=== PATIENT | male | born 1930 | race Caucasian/White ===

== ENCOUNTER 2017-01-17 12:23 | Inpatient (IN) | payer MEDICARE, MEDICAID ==
[2017-01-17] MEDS ORDERED: Albuterol-Ipratrop 3 mg / 0.5 (3 ml) UD IH STA (13:12)
--- NOTE | 2017-01-17 13:13 | C.PDOC ---
History Of Present Illness 86-YEAR-OLD MALE, W LIMITED HX, COMES IN ACCOMPANIED BY FAMILY, W/ COMPLAINTS OF SOB X 2 DAYS. +WHEEZING. PRIOR HO SIM EPISODE "BUT I DONT KNOW FROM WHAT". NO FEVER, CP. NO HOME O2 USE. NO LEG SWELLING. PMD DR DIANE LOPEZ ROS LIMTIED EXAM MOD DIST HEENT NEG LUNGS +TACHYPNEA W RETRACTINS OCC EXP WHEEZE ?BASILAR RALE CV IRREG REG TACHY ABD NEG NO EDEMA WARM DRY REMAINDER NEG Time Seen by Provider: 01/17/17 12:45 Chief Complaint (Nursing): Shortness Of Breath History Per: Family History/Exam Limitations: clinical condition Current Symptoms Are (Timing): Still Present Past Medical History Reviewed: Historical Data, Nursing Documentation, Vital Signs Vital Signs: Last Vital Signs Temp 98.3 F 01/17/17 13:16 Pulse 79 01/17/17 15:37 Resp 24 01/17/17 15:37 BP 105/62 01/17/17 15:37 Pulse Ox 100 01/17/17 15:37 - Medical History PMH: Asthma Family History: States: No Known Family Hx - Social History Hx Alcohol Use: No Hx Substance Use: No - Immunization History Hx Tetanus Toxoid Vaccination: (unk) Hx Influenza Vaccination: Yes (2016) Hx Pneumococcal Vaccination: (unk) Review Of Systems Review Of Systems: ROS cannot be obtained secondary to pt's inabilty to answer questions. Respiratory: Positive for: Shortness of Breath, Wheezing Physical Exam - Physical Exam Appears: Non-toxic, Other (MODERATE DISTRESS) Skin: Warm, Dry Head: Atraumatic Eye(s): bilateral: Normal Inspection, PERRL Oral Mucosa: Moist Neck: Normal ROM Chest: Symmetrical Cardiovascular: Rhythm Irregular (TACHYCARDIC), No Murmur Respiratory: Wheezing, Other ( +TACHYPNEA W RETRACTINS OCC EXP WHEEZE ?BASILAR RALE) Gastrointestinal/Abdominal: Soft, No Tenderness Extremity: Normal ROM, No Pedal Edema Neurological/Psych: Other (no focal deficit) ED Course And Treatment - Laboratory Results Result Diagrams: 01/17/17 13:19 01/17/17 13:19 ECG: Interpreted By Me ECG Rhythm: Atrial Fibrillation Rate From EC O2 Sat by Pulse Oximetry: 97 (on RA) Pulse Ox Interpretation: Normal - Radiology CXR: Interpreted by Me (? vascular congestion), Viewed By Me Progress - Re-Evaluation Re-evaluation Note: 01/17/17 13:48 sbp 84. NSR ON MONITOR @ 84 W OCC PVC. MILD RESP DIST ON O2. HOLD CARDIZEM, LASIX. 01/17/17 14:12 PT MED LIST INCOMPLETE. +COPD MEDS. REPEAT EKG NSR@80 APPEARS COMFORTABLE EXAM UNCH PRIOR 01/17/17 14:14 D/W DR Kristie LOPEZ C/F ICU, WILL EVAL IN ER 01/17/17 14:38 PROCALCITONIN, NS 500 CC, BIPAP WILL REASSESS FOR POSSIBLE ICU 01/17/17 14:20 PENDING CALLBACK PMD 01/17/17 15:02 D/W DR Obdulia LOPEZ WILL ADMIT PENDING ICU DISPO 01/17/17 16:31 APPEARS BETTER COMPARED TO PRIOR. NSR @ 67, SBP 105 NO TACHYPNEA. ON BIPAP. D/W DR Kristie LOPEZ, CLEARED FOR TELE. RECOMMENDS TAMIFLU - Data Reviewed Data Reviewed: Lab, Diagnostic imaging, EKG, Old records - Critical Care Citical Care: Excluding Proc Time Critical Care Time: 105 minutes - Continuity of Care Discussed patient case with:: Patient, Family-HIPPA compliant Discussed pt. case with art consultant/specialty: Pulmonary/Crit. Care Disposition Counseled Patient/Family Regarding: Studies Performed, Diagnosis - Disposition Disposition: HOSPITALIZED Disposition Time: 15:03 Condition: SERIOUS Forms: [facility] (Upper Sor[place]) - POA Present On Arrival: Poor Glycemic Control - Clinical Impression Clinical Impression: COPD exacerbation, CHF exacerbation, Rapid atrial fibrillation, Hypotension - Scribe Statement The provider has reviewed the documentation as recorded by the Scribe (Jose Manuel Najera) All medical record entries made by the Scribe were at my direction and personally dictated by me. I have reviewed the chart and agree that the record accurately reflects my personal performance of the history, physical exam, medical decision making, and the department course for this patient. I have also personally directed, reviewed, and agree with the discharge instructions and disposition. Decision To Admit - Pt Status Changed To: Hospital Disposition Of: Inpatient - Admit Certification Admit to Inpatient:: After my assessment, the patient will require hospitalization for at least two midnights. This is because of the severity of symptoms shown, intensity of services needed, and/or the medical risk in this patient being treated as an outpatient. - InPatient: Physician Admission Certification: I certify that this patient requires 2 or more midnights of care for the following reason:: SEE NOTE - . Bed Request Type: Telemetry Admitting Physician: Diane Lopez Patient Diagnosis: COPD exacerbation, CHF exacerbation, Rapid atrial fibrillation, Hypotension
[2017-01-17 13:22] LABS: BASO % 0.6 % (0.0-2.0); EOS % 0.1 % (0.0-4.0); HEMATOCRIT 28.4 % (35.0-51.0); LYMPH # 1.2 K/uL (1.0-4.3); LYMPH % 17.2 % (20.0-40.0); MEAN CELL VOLUME 93.6 fL (80.0-94.0); MEAN CORPUSCULAR HEMOGLOBIN 30.8 pg (27.0-31.0); MEAN CORPUSCULAR HGB CONC 32.9 g/dL (33.0-37.0); MEAN PLATELET VOLUME 10.9 fL (7.2-11.7); MONO # 0.8 K/uL (0.0-0.8); MONO % 11.2 % (0.0-10.0); NRBC % 0.2 % (0.0-2.0); RED CELL DISTRIBUTION WIDTH 16.5 % (11.5-14.5); WHITE BLOOD COUNT 6.9 K/uL (4.8-10.8)
[2017-01-17] MEDS ORDERED: Albuterol-Ipratrop 3 mg / 0.5 (3 ml) UD ONE ×2 (13:22→15:21)
[2017-01-17 13:30] LABS: CHLORIDE 104 mmol/L (98-107); SODIUM 135 mmol/L (132-148)
[2017-01-17 13:31] LABS: POTASSIUM 3.9 mmol/L (3.6-5.2)
[2017-01-17 13:33] LABS: ALB/GLOB RATIO 1.1 (1.0-2.1); ALKALINE PHOSPHATASE 37 U/L (38-126); ALT/SGPT 28 U/L (21-72); AST/SGOT 40 U/L (17-59); BILIRUBIN,TOTAL 1.3 mg/dL (0.2-1.3); BLOOD UREA NITROGEN 23 mg/dL (9-20); CARBON DIOXIDE 18 mmol/L (22-30); GFR AFRICAN-AMERICAN > 60; GLUCOSE,RANDOM 148 mg/dL (75-110); TOTAL PROTEIN 6.9 g/dL (6.3-8.3)
[2017-01-17] MEDS ORDERED: Digoxin 500 mcg/2ml (0.5 mg/2ml) Inj IV STA (13:47)
--- NOTE | 2017-01-17 13:53 | RAD ---
PROCEDURE: CHEST RADIOGRAPH, 1 VIEW HISTORY: Shortness of breath COMPARISON: 05/26/2011 FINDINGS: LUNGS: There is mild pulmonary venous congestion and interstitial pulmonary edema. The lungs are hyperinflated with peribronchial thickening and subsegmental atelectasis in the right lower lobe. No focal consolidation. PLEURA: No pneumothorax. Suspect small pleural effusions. CARDIOVASCULAR: There is mild cardiomegaly. Atherosclerotic aortic arch calcifications are present. OSSEOUS STRUCTURES: No significant abnormalities. VISUALIZED UPPER ABDOMEN: Normal. OTHER FINDINGS: None. IMPRESSION: Mild cardiomegaly, pulmonary venous congestion and interstitial pulmonary edema suggestive of mild congestive heart failure. COPD. No focal consolidation.
[2017-01-17] MEDS ORDERED: Digoxin 500 mcg/2ml (0.5 mg/2ml) Inj ONE (13:58)
[2017-01-17 14:08] LABS: INR 1.2
[2017-01-17 14:10] LABS: VENOUS BLOOD GAS BASE EXCESS -2.1 mmol/L (0.0-2.0); VENOUS BLOOD GAS PCO2 30 mmHg (40-60); VENOUS BLOOD PH 7.45 (7.32-7.43)
[2017-01-17] MEDS ORDERED: MethylPREDNISolone 40 mg Vial IVP STA (14:13)
[2017-01-17] MEDS ORDERED: Sodium Chloride 0.9% 500 ML IV ONE (14:38)
[2017-01-17] MEDS: Albuterol-Ipratrop 3 mg / 0.5 (3 ml) UD IH SCH ×2 (15:00→15:15)
--- NOTE | 2017-01-17 17:34 | CP.PCM.CON ---
History of Present Illness - History of Present Illness History of Present Illness: 86 y/o male with pmx of COPD, h/o diastolic heart failure and at risk of CAD presents to [facility] with c/o cough x 3 days, thick productive, yellow. respiratoty distress. Patient taking theophyline, albuterol. Patient presents to ER with A-fib/svt and dyspnea. A-fb self terminated by itself. BP improved. Patient was initially given lasix, but given the viral infection, BP impoved with fluid bolus. (+)Sob, (+) cough, denies any chest pain, denies any dizizness Review of Systems - Review of Systems Systems not reviewed;Unavailable: Respiratory Distress - Constitutional Constitutional: As Per HPI - EENT Eyes: Blurred Vision - Cardiovascular Cardiovascular: Dyspnea on Exertion, Irregular Heart Rhythm. absent: Chest Pain , Leg Edema - Respiratory Respiratory: absent: Cough, Excessive Mucous Production, Change in Mucous Color - Gastrointestinal Gastrointestinal: absent: Abdominal Pain, Bloating, Constipation, Cramping, Diarrhea, Dyspepsia - Neurological Neurological: Abnormal Hearing Past Patient History - Past Medical History & Family History Past Medical History?: Yes - Past Social History Smoking Status: Heavy Smoker > 10 Cigarettes Daily - CARDIAC Hx Cardiac Disorders: Yes Hx Angina: No Hx Atrial Fibrillation: Yes Hx Cardia Arrhythmia: Yes Hx Circulatory Problems: Yes Hx Congestive Heart Failure: Yes Hx Heart Attack: No Hx Heart Murmur: Yes Hx Heart Transplant: No - PULMONARY Hx Asthma: Yes Hx Chronic Obstructive Pulmonary Disease (COPD): Yes Hx Respiratory Tract Infection: Yes - PSYCHIATRIC Hx Substance Use: No - SURGICAL HISTORY Hx Surgeries: No - ANESTHESIA Hx Anesthesia: No Meds Allergies/Adverse Reactions: Allergies Allergy/AdvReac Type Severity Reaction Status Date / Time No Known Allergies Allergy Unverified 01/17/17 12:34 - Medications Medications: Current Medications Diltiazem HCl 125 mg/ Sodium (Chloride) 125 mls @ 5 mls/hr IV .Q24H JUNIOR PRN Reason: 5 MG/HR Last Admin: 01/17/17 14:52 Dose: Not Given Physical Exam - Head Exam Head Exam: ATRAUMATIC, NORMOCEPHALIC - Eye Exam Eye Exam: EOMI, Normal appearance - ENT Exam ENT Exam: Mucous Membranes Dry - Respiratory Exam Respiratory Exam: Accessory Muscle Use, Prolonged Expiratory Phase, Rhonchi, Respiratory Distress - Cardiovascular Exam Cardiovascular Exam: Bradycardia, +S1, +S2, Systolic Murmur - GI/Abdominal Exam GI & Abdominal Exam: Normal Bowel Sounds, Soft. absent: Distended Results - Vital Signs Recent Vital Signs: Last Vital Signs Temp 98.3 F 01/17/17 13:16 Pulse 69 01/17/17 17:32 Resp 22 01/17/17 17:32 BP 135/71 01/17/17 17:32 Pulse Ox 100 01/17/17 17:32 - Labs Result Diagrams: 01/17/17 13:19 01/17/17 13:19 Labs: Laboratory Results - last 24 hr 01/17/17 01/17/17 01/17/17 13:19 13:19 13:25 WBC 6.9 RBC 3.04 L Hgb 9.4 L Hct 28.4 L MCV 93.6 MCH 30.8 MCHC 32.9 L RDW 16.5 H Plt Count 142 MPV 10.9 Neut % (Auto) 70.9 Lymph % (Auto) 17.2 L [place] % (Auto) 11.2 H Eos % (Auto) 0.1 Baso % (Auto) 0.6 Neut # 4.9 Lymph # 1.2 [place] # 0.8 Eos # 0.0 Baso # 0.0 Differential Comment PT INR APTT pO2 146 H VBG pH 7.45 H VBG pCO2 30 L VBG HCO3 23.3 VBG Total CO2 21.8 L VBG O2 Sat (Calc) 100.2 H VBG Base Excess -2.1 L VBG Potassium 3.8 Glucose 169 H Lactate 2.0 Sodium 135 138.0 Potassium 3.9 Chloride 104 111.0 H Carbon Dioxide 18 L Anion Gap 17 BUN 23 H Creatinine 1.3 Est GFR ( Amer) > 60 Est GFR (Non-Af Amer) 52 Random Glucose 148 H Calcium 8.0 L Total Bilirubin 1.3 AST 40 ALT 28 Alkaline Phosphatase 37 L Troponin I 0.1490 H* NT-Pro-B Natriuret Pep 6450 H Total Protein 6.9 Albumin 3.7 Globulin 3.2 Albumin/Globulin Ratio 1.1 Procalcitonin Venous Blood Potassium 3.8 Influenza Typ A,B (EIA) 01/17/17 01/17/17 01/17/17 13:57 15:29 15:31 WBC RBC Hgb Hct MCV MCH MCHC RDW Plt Count MPV Neut % (Auto) Lymph % (Auto) [place] % (Auto) Eos % (Auto) Baso % (Auto) Neut # Lymph # [place] # Eos # Baso # Differential Comment PT 14.2 H INR 1.2 APTT 36 H pO2 VBG pH VBG pCO2 VBG HCO3 VBG Total CO2 VBG O2 Sat (Calc) VBG Base Excess VBG Potassium Glucose Lactate Sodium Potassium Chloride Carbon Dioxide Anion Gap BUN Creatinine Est GFR ( Amer) Est GFR (Non-Af Amer) Random Glucose Calcium Total Bilirubin AST ALT Alkaline Phosphatase Troponin I NT-Pro-B Natriuret Pep Total Protein Albumin Globulin Albumin/Globulin Ratio Procalcitonin 0.43 Venous Blood Potassium Influenza Typ A,B (EIA) Negative for flu a/b - EKG Data EKG Interpreted by: Myself Rate: Tachycardia - EKG Data When Compared to Previous EKG: Significant Changes (st wave changes septal leads ) Assessment & Plan - Assessment and Plan (Free Text) Assessment: -Afib: 2nd cough and bronchodilators, viral URTI, continue home AV lidia blockers, start Asa as patient at risk of CAD given history of COPD and PVD on physical exam -COPD: exacerbation 2nd URTI, start solumedrol 40 mg q8hrs, bronchodilators, Bi- pap to decrease work of breathing, obtain ABG - URTI; Influenza EIA sensitivity low, given FREDRICK symptoms, start tamiflu, check procalcitonin -CAD/NSTEMI: obtain cardiology input, ST t wave changes normalized when HR normal, consider dual antiplatelet therapy (asa + plavix), av lidia paula ( CONSIDER ccb) -Patient was taking theophylene, check levels -consider cardiology input, echo (LIKELY DIASTOLIC HEART FAILURE), CHADVasc score high: consider AC after discussing risks and benefits -COPD: continue IV steroids and singulair, stop theophylene and contineu atrovent q6 and albuterol PRN -start chemical DVT ppx -start ppi ppx Patient will benfit from telemetry eval PLEASE CALL MICU IF PATIENT'S CLINICAL STATUS WORSENS OR HR >120. D/W ER PHYSICIAN CC TIME SPENT 35 MINUTES
[2017-01-17] MEDS ORDERED: Ipratropium 0.02% Inhal Soln (0.5 mg/2.5 ml) UD IH SCH (18:15)
[2017-01-17] MEDS ORDERED: Ipratropium 0.02% Inhal Soln (0.5 mg/2.5 ml) UD IH ONE (20:49)
[2017-01-17] MEDS ORDERED: Fluticasone-Salmeterol 250-50mcg Diskus IH SCH (22:00)
[2017-01-17] MEDS ORDERED: MethylPREDNISolone 40 mg Vial ONE (22:24)
[2017-01-17] MEDS: MethylPREDNISolone 40 mg Vial IVP SCH (22:26)
--- NOTE | 2017-01-17 23:31 | HP ---
HISTORY OF PRESENT ILLNESS: This is an 86-year-old male came to the emergency room with the family. The patient has history of increasing shortness of breath for the last 3 to 4 days. The patient has cough. The patient is known COPD. The patient denies having any chest pain. No history of any fever or chills. No swelling of the legs. No dizziness. REVIEW OF SYSTEMS: CARDIOVASCULAR: Negative for chest pain. RESPIRATORY SYSTEM: As mentioned above. CENTRAL NERVOUS SYSTEM: No focal neurological complaints. GASTROINTESTINAL: No history of nausea, vomiting or abdominal pain. The patient has constipation. EXTREMITIES: No edema of the legs. No fever. No urinary complaints. All other systems negative. The patient is psychiatrically stable. The patient has hard of hearing. PAST MEDICAL HISTORY: History of COPD. Anemia. No history of diabetes. Hypothyroidism. FAMILY HISTORY: No known inherited disease. SOCIAL HISTORY: Nonsmoker, nonalcoholic. ALLERGIES: NO KNOWN ALLERGIES. MEDICATIONS: The patient's medications are reviewed by me. PHYSICAL EXAMINATION: GENERAL: This is an 86-year-old male, tachypneic, dyspneic. VITAL SIGNS: Temperature 98.3, pulse 115, respirations 20 and blood pressure 90/52 mmHg, pulse ox is 97% on room air. HEENT: Normal. NECK: JVP is flat. Carotids, no bruits. LUNGS: Wheezing present, bilateral basal rales present. HEART: S1 and S2 normal. Tachycardic. No gallop. No murmur. ABDOMEN: Soft. Nontender. No organomegaly. CENTRAL NERVOUS SYSTEM: No focal neurological deficits. EXTREMITIES: No edema of the legs. LABORATORY DATA: On admission, white cell count is normal, hemoglobin is 9.4, potassium is 3.9, BUN is 23, and creatinine is 1.3. EKG initially showed atrial fibrillation with rapid ventricular rate, but the patient was converted to normal sinus rhythm. Chest x-ray shows mild pulmonary vascular congestion. Troponin is elevated. IMPRESSION: Non-ST elevation myocardial infarction. Congestive heart failure. Acute chronic obstructive pulmonary disease. Anemia. PLAN: The patient will be admitted to the hospital. We will get ICU team evaluated for ICU admission. We will continue other medication. Workup to rule out myocardial infarction. Manda Durbin MD [facility] # [id number]
[2017-01-18] MEDS: Albuterol-Ipratrop 3 mg / 0.5 (3 ml) UD INH SCH ×4 (01:28→19:34)
[2017-01-18 04:21] LABS: HEMATOCRIT 28.5 % (35.0-51.0); MEAN CELL VOLUME 92.9 fL (80.0-94.0); MEAN CORPUSCULAR HEMOGLOBIN 30.5 pg (27.0-31.0); MEAN CORPUSCULAR HGB CONC 32.8 g/dL (33.0-37.0); MEAN PLATELET VOLUME 10.5 fL (7.2-11.7); RED CELL DISTRIBUTION WIDTH 16.6 % (11.5-14.5)
[2017-01-18 04:33] LABS: CHLORIDE 104 mmol/L (98-107); POTASSIUM 4.5 mmol/L (3.6-5.2); SODIUM 135 mmol/L (132-148)
[2017-01-18 04:36] LABS: BLOOD UREA NITROGEN 28 mg/dL (9-20); CARBON DIOXIDE 19 mmol/L (22-30); GFR AFRICAN-AMERICAN > 60
[2017-01-18 04:37] LABS: CALCIUM 8.3 mg/dl (8.6-10.4); GLUCOSE,RANDOM 250 mg/dL (75-110)
[2017-01-18] MEDS: MethylPREDNISolone 40 mg Vial IVP SCH ×3 (05:17→21:06)
[2017-01-18] MEDS: Enoxaparin 40 mg Syringe SC SCH (09:16)
[2017-01-18] MEDS: Metoprolol Succinate 25 mg XL Tab PO SCH (11:46)
[2017-01-18] MEDS: Fluticasone-Salmeterol 250-50mcg Diskus IH SCH (19:34)
--- NOTE | 2017-01-18 21:16 | CP.PCM.PN ---
Subjective - Date & Time of Evaluation Date of Evaluation: 01/18/17 Time of Evaluation: 11:00 - Subjective Subjective: SOB PRESENT. NO CP. COUGH. AFEBRILE. Objective - Vital Signs/Intake and Output Vital Signs (last 24 hours): Temp Pulse Resp BP Pulse Ox 98.1 F 74 18 131/73 99 01/18/17 15:35 01/18/17 17:39 01/18/17 15:35 01/18/17 15:35 01/18/17 15:35 Intake and Output: 01/18/17 01/19/17 18:59 06:59 Intake Total 900 Output Total 800 Balance 100 - Medications Medications: Current Medications Albuterol/Ipratropium (Duoneb 3 Mg/0.5 Mg (3 Ml) Ud) 3 ml INH RQ6 [facility] Last Admin: 01/18/17 19:34 Dose: 3 ml Enoxaparin Sodium (Lovenox) 40 mg SC DAILY [facility] Last Admin: 01/18/17 09:16 Dose: 40 mg Furosemide (Lasix) 20 mg IVP DAILY [facility] Last Admin: 01/18/17 09:16 Dose: 20 mg Methylprednisolone (Solu-Medrol) 40 mg IVP Q8 [facility] Last Admin: 01/18/17 21:06 Dose: 40 mg Metoprolol Succinate (Toprol Xl) 25 mg PO DAILY [facility] Last Admin: 01/18/17 11:46 Dose: 25 mg Fluticasone/Salmeterol (Advair Diskus 250/50) 1 puff IH RQ12 [facility] Last Admin: 01/18/17 19:34 Dose: 1 puff - Labs Labs: 01/18/17 04:17 01/18/17 04:17 PT 14.2 SECONDS (9.7-12.2) H 01/17/17 13:57 INR 1.2 01/17/17 13:57 APTT 36 SECONDS (21-34) H 01/17/17 13:57 - Constitutional Appears: No Acute Distress, Chronically Ill - Eye Exam Eye Exam: Normal appearance, PERRL - ENT Exam ENT Exam: Mucous Membranes Moist - Respiratory Exam Respiratory Exam: Decreased Breath Sounds, Wheezes, NORMAL BREATHING PATTERN - Cardiovascular Exam Cardiovascular Exam: REGULAR RHYTHM, +S1, +S2 - GI/Abdominal Exam GI & Abdominal Exam: Soft, Normal Bowel Sounds - Extremities Exam Extremities Exam: Full ROM, Normal Capillary Refill, Normal Inspection. absent : Joint Swelling, Pedal Edema - Neurological Exam Neurological Exam: Alert, Awake, CN II-XII Intact, Normal Gait, Oriented x3 - Psychiatric Exam Psychiatric exam: Normal Affect, Normal Mood Assessment and Plan - Assessment and Plan (Free Text) Assessment: COPD. CHF. TROPONIN NEG. Plan: FOR CARDIAC W/U. RESP TREATMENT.
[2017-01-19] MEDS: Albuterol-Ipratrop 3 mg / 0.5 (3 ml) UD INH SCH ×4 (02:18→19:40)
[2017-01-19] MEDS: MethylPREDNISolone 40 mg Vial IVP SCH ×3 (05:20→22:11)
[2017-01-19] MEDS: Fluticasone-Salmeterol 250-50mcg Diskus IH SCH ×2 (08:09→19:43)
[2017-01-19] MEDS: Enoxaparin 40 mg Syringe SC SCH (10:31)
[2017-01-19] MEDS: Metoprolol Succinate 25 mg XL Tab PO SCH (10:32)
--- NOTE | 2017-01-19 13:04 | CP.PCM.PN ---
Subjective - Date & Time of Evaluation Date of Evaluation: 01/19/17 Time of Evaluation: 13:02 - Subjective Subjective: SEVERE SOB PRESENT AT TIMES. COUGH. AFEBRILE. DISCUSSED WITH DR. GARLAND. NO CP. CONSTIPATION. Objective - Vital Signs/Intake and Output Vital Signs (last 24 hours): Temp Pulse Resp BP Pulse Ox 97.7 F 76 16 134/69 95 01/19/17 08:47 01/19/17 12:31 01/19/17 08:47 01/19/17 10:32 01/19/17 08:47 Intake and Output: 01/19/17 01/19/17 06:59 18:59 Intake Total 480 Output Total 1200 Balance -720 - Medications Medications: Current Medications Albuterol/Ipratropium (Duoneb 3 Mg/0.5 Mg (3 Ml) Ud) 3 ml INH RQ6 [facility] Last Admin: 01/19/17 08:10 Dose: 3 ml Enoxaparin Sodium (Lovenox) 40 mg SC DAILY [facility] Last Admin: 01/19/17 10:31 Dose: 40 mg Furosemide (Lasix) 20 mg IVP DAILY [facility] Last Admin: 01/19/17 10:32 Dose: 20 mg Methylprednisolone (Solu-Medrol) 40 mg IVP Q8 [facility] Last Admin: 01/19/17 05:20 Dose: 40 mg Metoprolol Succinate (Toprol Xl) 25 mg PO DAILY [facility] Last Admin: 01/19/17 10:32 Dose: 25 mg Fluticasone/Salmeterol (Advair Diskus 250/50) 1 puff IH RQ12 [facility] Last Admin: 01/19/17 08:09 Dose: 1 puff - Labs Labs: 01/18/17 04:17 01/18/17 04:17 PT 14.2 SECONDS (9.7-12.2) H 01/17/17 13:57 INR 1.2 01/17/17 13:57 APTT 36 SECONDS (21-34) H 01/17/17 13:57 - Constitutional Appears: In Acute Distress, Chronically Ill - Eye Exam Eye Exam: Normal appearance, PERRL - ENT Exam ENT Exam: Mucous Membranes Moist - Respiratory Exam Respiratory Exam: Decreased Breath Sounds, Wheezes - Cardiovascular Exam Cardiovascular Exam: REGULAR RHYTHM, +S1, +S2 - GI/Abdominal Exam GI & Abdominal Exam: Soft, Normal Bowel Sounds - Extremities Exam Extremities Exam: Full ROM, Normal Capillary Refill, Normal Inspection. absent : Joint Swelling, Pedal Edema - Neurological Exam Neurological Exam: Alert, Awake, CN II-XII Intact, Normal Gait, Oriented x3 - Psychiatric Exam Psychiatric exam: Normal Affect, Normal Mood Assessment and Plan - Assessment and Plan (Free Text) Assessment: ACUTE COPD. CHF. Plan: FOR CARDIAC W/U. RESP TREATMENT. SOLUMEDROL.
--- NOTE | 2017-01-19 13:55 | CARD ---
APPROVED REPORT EKG Measurement Heart [id number] <Conclusion> Normal sinus rhythm Left axis deviation Abnormal ECG
--- NOTE | 2017-01-19 13:56 | CARD ---
APPROVED REPORT EKG Measurement Heart [id number] <Conclusion> Atrial fibrillation with rapid ventricular response Low voltage QRS Nonspecific ST abnormality Abnormal ECG
--- NOTE | 2017-01-19 17:23 | CP.PCM.CON ---
History of Present Illness - History of Present Illness History of Present Illness: Reason for consultation: shortness of breath 86-year-old male with history of COPD presented to emergency room complaining of shortness of breat and cough productive off thick purulent sputum. In the emergency room patient was found to be in atrial fibrillation which terminated by itself. Patient was initially placed on BiPAP and admitted to telemetry with COPD exacerbation Review of Systems - Review of Systems All systems: reviewed and no additional remarkable complaints except (shortness of breath and cough) Past Patient History - Past Medical History & Family History Past Medical History?: Yes - Past Social History Smoking Status: Never Smoked - CARDIAC Hx Cardiac Disorders: Yes Hx Angina: No Hx Atrial Fibrillation: Yes Hx Cardia Arrhythmia: Yes Hx Circulatory Problems: Yes Hx Congestive Heart Failure: Yes Hx Heart Attack: No Hx Heart Murmur: Yes Hx Heart Transplant: No - PULMONARY Hx Asthma: Yes Hx Chronic Obstructive Pulmonary Disease (COPD): Yes Hx Respiratory Tract Infection: Yes - MUSCULOSKELETAL/RHEUMATOLOGICAL Hx Falls: No - PSYCHIATRIC Hx Substance Use: No - SURGICAL HISTORY Hx Surgeries: No - ANESTHESIA Hx Anesthesia: No Meds Allergies/Adverse Reactions: Allergies Allergy/AdvReac Type Severity Reaction Status Date / Time No Known Allergies Allergy Unverified 01/17/17 12:34 - Medications Medications: Current Medications Albuterol/Ipratropium (Duoneb 3 Mg/0.5 Mg (3 Ml) Ud) 3 ml INH RQ6 [facility] Last Admin: 01/19/17 13:29 Dose: 3 ml Enoxaparin Sodium (Lovenox) 40 mg SC DAILY [facility] Last Admin: 01/19/17 10:31 Dose: 40 mg Furosemide (Lasix) 20 mg IVP DAILY [facility] Last Admin: 01/19/17 10:32 Dose: 20 mg Azithromycin 500 mg/ Sodium (Chloride) 250 mls @ 250 mls/hr IVPB DAILY [facility] Lactulose (Enulose) 20 gm PO HS [facility] Methylprednisolone (Solu-Medrol) 40 mg IVP Q8 [facility] Last Admin: 01/19/17 12:59 Dose: 40 mg Metoprolol Succinate (Toprol Xl) 25 mg PO DAILY [facility] Last Admin: 01/19/17 10:32 Dose: 25 mg Fluticasone/Salmeterol (Advair Diskus 250/50) 1 puff IH RQ12 [facility] Last Admin: 01/19/17 08:09 Dose: 1 puff Physical Exam - Head Exam Head Exam: ATRAUMATIC, NORMOCEPHALIC - Eye Exam Eye Exam: Normal appearance - ENT Exam ENT Exam: Mucous Membranes Moist - Neck Exam Neck exam: Positive for: Normal Inspection - Respiratory Exam Respiratory Exam: Rhonchi, Wheezes - Cardiovascular Exam Cardiovascular Exam: REGULAR RHYTHM - GI/Abdominal Exam GI & Abdominal Exam: Normal Bowel Sounds - Extremities Exam Extremities exam: Positive for: normal inspection - Neurological Exam Neurological exam: Alert, Oriented x3 Results - Vital Signs Recent Vital Signs: Last Vital Signs Temp 98.1 F 01/19/17 15:00 Pulse 69 01/19/17 15:00 Resp 20 01/19/17 15:00 BP 113/55 L 01/19/17 15:00 Pulse Ox 98 01/19/17 15:00 - Labs Result Diagrams: 01/18/17 04:17 01/18/17 04:17 Assessment & Plan (1) COPD exacerbation Status: Acute Comment: continue IV steroids, nebulizer treatment and antibiotics. Followup chest x-ray. Cardiac workup including echo (2) CHF exacerbation Status: Acute
[2017-01-19] MEDS ORDERED: Azithromycin 500 MG in Sodium Chloride 0.9% 250 ML IVPB SCH ×2 (17:30→18:00)
--- NOTE | 2017-01-19 21:18 | CARD ---
APPROVED REPORT EXAM: Two-dimensional and M-mode echocardiogram with Doppler and color Doppler. Other Information Quality : GoodRhythm : INDICATION Dyspnea Atrial Fibrillation Congestive Heart Failure M-Mode DIMENSIONS Left Atrium (MM)3.16 (2.5-4.0cm)IVSd1.08 (0.7-1.1cm) Aortic Root3.26 (2.2-3.7cm)LVDd5.80 (4.0-5.6cm) Aortic Cusp Exc.2.15 (1.5-2.0cm)PWd0.94 (0.7-1.1cm) FS (%) 35 %LVDs3.78 (2.0-3.8cm) LVEF (%)63 (>50%) Aortic Valve AI P 1/2 [id number] Mitral Valve MV E Etesgcfk67.1cm/sMV A Xspkptkz69.0cm/sE/A ratio0.6 TDI E/Lateral E'0.0E/Medial E'0.0 Tricuspid Valve TR Peak Spxtiezp324lt/sTR Peak Gr.[id number] LEFT VENTRICLE The left ventricle is normal size. There is normal left ventricular wall thickness. The left ventricular function is normal. The left ventricular ejection fraction is within the normal range. 65% No regional wall motion abnormalities noted. Transmitral Doppler flow pattern is Grade I-abnormal relaxation pattern. No left ventricle thrombus noted on this study. There is no ventricular septal defect visualized. There is no left ventricular aneurysm. There is no mass noted in the left ventricle. RIGHT VENTRICLE The right ventricle is normal size. There is normal right ventricular wall thickness. The right ventricular systolic function is normal. ATRIA The left atrium size is normal. The right atrium size is normal. The interatrial septum is intact with no evidence for an atrial septal defect. AORTIC VALVE The aortic valve is normal in structure and function. 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 There is no aortic valvular stenosis. There is no aortic valvular vegetation. MITRAL VALVE The mitral valve is normal in structure and function. There is no evidence of mitral valve prolapse. There is no mitral valve stenosis. There is mild mitral valve regurgitation noted. TRICUSPID VALVE The tricuspid valve is normal in structure and function. There is mild tricuspid valve regurgitation noted. Estimated PA systolic pressure is 42 mm Hg There is no tricuspid valve prolapse or vegetation. There is no tricuspid valve stenosis. PULMONIC VALVE The pulmonary valve is normal in structure and function. There is no pulmonic valvular regurgitation. There is no pulmonic valvular stenosis. GREAT VESSELS The aortic root is normal in size. The ascending aorta is normal in size. The pulmonary artery is normal. The IVC is normal in size and collapses >50% with inspiration. PERICARDIAL EFFUSION The pericardium appears normal. There is no pleural effusion. <Conclusion> Normal LV systolic function. 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 No aortic stnosis. There is mild mitral valve regurgitation noted.
[2017-01-20] MEDS: Albuterol-Ipratrop 3 mg / 0.5 (3 ml) UD INH SCH ×4 (01:04→19:33)
[2017-01-20] MEDS: MethylPREDNISolone 40 mg Vial IVP SCH ×3 (05:30→21:09)
[2017-01-20 07:09] LABS: CHLORIDE 101 mmol/L (98-107); POTASSIUM 3.9 mmol/L (3.6-5.2); SODIUM 135 mmol/L (132-148)
[2017-01-20 07:12] LABS: CARBON DIOXIDE 26 mmol/L (22-30); GFR AFRICAN-AMERICAN > 60
[2017-01-20 07:13] LABS: BLOOD UREA NITROGEN 39 mg/dL (9-20); CALCIUM 7.9 mg/dl (8.6-10.4); GLUCOSE,RANDOM 178 mg/dL (75-110)
[2017-01-20] MEDS: Fluticasone-Salmeterol 250-50mcg Diskus IH SCH ×2 (07:49→19:33)
[2017-01-20] MEDS: Metoprolol Succinate 25 mg XL Tab PO SCH (09:53)
[2017-01-20] MEDS: Enoxaparin 40 mg Syringe SC SCH (09:54)
--- NOTE | 2017-01-20 13:30 | CP.PCM.PN ---
Subjective - Date & Time of Evaluation Date of Evaluation: 01/20/17 Time of Evaluation: 13:27 - Subjective Subjective: FEELS BETTER. SOB MILD. NO CP. DEBILITY PRESENT. Objective - Vital Signs/Intake and Output Vital Signs (last 24 hours): Temp Pulse Resp BP Pulse Ox 98 F 70 20 176/94 H 99 01/19/17 23:10 01/20/17 05:06 01/19/17 23:10 01/20/17 09:58 01/19/17 23:10 - Medications Medications: Current Medications Albuterol/Ipratropium (Duoneb 3 Mg/0.5 Mg (3 Ml) Ud) 3 ml INH RQ6 [facility] Last Admin: 01/20/17 13:19 Dose: 3 ml Enoxaparin Sodium (Lovenox) 40 mg SC DAILY [facility] Last Admin: 01/20/17 09:54 Dose: 40 mg Furosemide (Lasix) 20 mg IVP DAILY [facility] Last Admin: 01/20/17 09:58 Dose: 20 mg Azithromycin 500 mg/ Sodium (Chloride) 250 mls @ 250 mls/hr IVPB Q24H [facility] Last Admin: 01/19/17 19:38 Dose: 250 mls/hr Lactulose (Enulose) 20 gm PO HS [facility] Last Admin: 01/19/17 22:11 Dose: 20 gm Methylprednisolone (Solu-Medrol) 40 mg IVP Q8 [facility] Last Admin: 01/20/17 05:30 Dose: 40 mg Metoprolol Succinate (Toprol Xl) 25 mg PO DAILY [facility] Last Admin: 01/20/17 09:53 Dose: 25 mg Fluticasone/Salmeterol (Advair Diskus 250/50) 1 puff IH RQ12 [facility] Last Admin: 01/20/17 07:49 Dose: 1 puff - Labs Labs: 01/18/17 04:17 01/20/17 06:17 PT 14.2 SECONDS (9.7-12.2) H 01/17/17 13:57 INR 1.2 01/17/17 13:57 APTT 36 SECONDS (21-34) H 01/17/17 13:57 - Constitutional Appears: Non-toxic, Chronically Ill - Eye Exam Eye Exam: Normal appearance, PERRL - ENT Exam ENT Exam: Mucous Membranes Moist - Respiratory Exam Respiratory Exam: Decreased Breath Sounds, NORMAL BREATHING PATTERN - Cardiovascular Exam Cardiovascular Exam: REGULAR RHYTHM, +S1, +S2 - GI/Abdominal Exam GI & Abdominal Exam: Soft, Normal Bowel Sounds - Extremities Exam Extremities Exam: Full ROM, Normal Capillary Refill, Normal Inspection. absent : Joint Swelling, Pedal Edema - Back Exam Back Exam: NORMAL INSPECTION - Neurological Exam Neurological Exam: Alert, Awake, CN II-XII Intact, Normal Gait, Oriented x3 - Psychiatric Exam Psychiatric exam: Normal Affect, Normal Mood Assessment and Plan - Assessment and Plan (Free Text) Assessment: ACUTE COPD. Plan: CT SOLUMEDROL. RESP THERAPY. D/C LASIX BUN 39. PT. HOME O2 EVAL.
--- NOTE | 2017-01-20 16:11 | CP.PCM.PN ---
Subjective - Date & Time of Evaluation Date of Evaluation: 01/20/17 Time of Evaluation: 09:00 - Subjective Subjective: Patient seen and examined. Remained on BiPAP Breathing better Complaining of cough and dyspnea on exertion Denies fever chills, denies chest pain Objective - Vital Signs/Intake and Output Vital Signs (last 24 hours): Temp Pulse Resp BP Pulse Ox 98 F 63 20 113/63 97 01/20/17 15:00 01/20/17 15:00 01/20/17 15:00 01/20/17 15:00 01/20/17 15:00 Intake and Output: 01/20/17 01/20/17 06:59 18:59 Intake Total 350 Balance 350 - Medications Medications: Current Medications Albuterol/Ipratropium (Duoneb 3 Mg/0.5 Mg (3 Ml) Ud) 3 ml INH RQ6 [facility] Last Admin: 01/20/17 13:19 Dose: 3 ml Azithromycin (Zithromax) 500 mg PO Q24H [facility] Enoxaparin Sodium (Lovenox) 40 mg SC DAILY [facility] Last Admin: 01/20/17 09:54 Dose: 40 mg Lactulose (Enulose) 20 gm PO HS [facility] Last Admin: 01/19/17 22:11 Dose: 20 gm Methylprednisolone (Solu-Medrol) 40 mg IVP Q8 [facility] Last Admin: 01/20/17 13:34 Dose: 40 mg Metoprolol Succinate (Toprol Xl) 25 mg PO DAILY [facility] Last Admin: 01/20/17 09:53 Dose: 25 mg Fluticasone/Salmeterol (Advair Diskus 250/50) 1 puff IH RQ12 [facility] Last Admin: 01/20/17 07:49 Dose: 1 puff - Labs Labs: 01/18/17 04:17 01/20/17 06:17 PT 14.2 SECONDS (9.7-12.2) H 01/17/17 13:57 INR 1.2 01/17/17 13:57 APTT 36 SECONDS (21-34) H 01/17/17 13:57 - Head Exam Head Exam: ATRAUMATIC, NORMOCEPHALIC - ENT Exam ENT Exam: Mucous Membranes Moist - Neck Exam Neck Exam: Normal Inspection - Respiratory Exam Respiratory Exam: Rales, Rhonchi - Cardiovascular Exam Cardiovascular Exam: REGULAR RHYTHM - GI/Abdominal Exam GI & Abdominal Exam: Soft, Normal Bowel Sounds - Extremities Exam Extremities Exam: Full ROM, Normal Inspection - Neurological Exam Neurological Exam: Awake Assessment and Plan (1) COPD exacerbation Assessment & Plan: Continue IV antibiotics, IV steroids and nebulizer treatment Continue BiPAP as needed and follow-up ABG Status: Acute (2) CHF exacerbation Status: Acute
[2017-01-21] MEDS: Albuterol-Ipratrop 3 mg / 0.5 (3 ml) UD INH SCH ×4 (01:39→20:10)
[2017-01-21] MEDS: MethylPREDNISolone 40 mg Vial IVP SCH ×3 (05:14→21:11)
[2017-01-21] MEDS: Enoxaparin 40 mg Syringe SC SCH (10:01)
[2017-01-21] MEDS: Metoprolol Succinate 25 mg XL Tab PO SCH (10:02)
[2017-01-21] MEDS: Fluticasone-Salmeterol 250-50mcg Diskus IH SCH ×2 (11:12→20:10)
--- NOTE | 2017-01-21 13:46 | CP.PCM.PN ---
Subjective - Date & Time of Evaluation Date of Evaluation: 01/21/17 Time of Evaluation: 13:45 - Subjective Subjective: 86 Y/O MALE SEEN AND EXAMINED TODAY. Objective - Vital Signs/Intake and Output Vital Signs (last 24 hours): Temp Pulse Resp BP Pulse Ox 98 F 55 L 18 154/78 H 98 01/21/17 07:20 01/21/17 07:20 01/21/17 07:20 01/21/17 07:20 01/21/17 07:20 Intake and Output: 01/21/17 01/21/17 06:59 18:59 Intake Total 420 Output Total 700 Balance -280 - Medications Medications: Current Medications Albuterol/Ipratropium (Duoneb 3 Mg/0.5 Mg (3 Ml) Ud) 3 ml INH RQ6 [facility] Last Admin: 01/21/17 13:26 Dose: 3 ml Azithromycin (Zithromax) 500 mg PO Q24H [facility] Last Admin: 01/20/17 18:12 Dose: 500 mg Enoxaparin Sodium (Lovenox) 40 mg SC DAILY [facility] Last Admin: 01/21/17 10:01 Dose: 40 mg Lactulose (Enulose) 20 gm PO HS [facility] Last Admin: 01/20/17 21:09 Dose: 20 gm Methylprednisolone (Solu-Medrol) 40 mg IVP Q8 [facility] Last Admin: 01/21/17 05:14 Dose: 40 mg Metoprolol Succinate (Toprol Xl) 25 mg PO DAILY [facility] Last Admin: 01/21/17 10:02 Dose: 25 mg Fluticasone/Salmeterol (Advair Diskus 250/50) 1 puff IH RQ12 [facility] Last Admin: 01/21/17 11:12 Dose: 1 puff - Labs Labs: 01/18/17 04:17 01/20/17 06:17 PT 14.2 SECONDS (9.7-12.2) H 01/17/17 13:57 INR 1.2 01/17/17 13:57 APTT 36 SECONDS (21-34) H 01/17/17 13:57 Assessment and Plan - Assessment and Plan (Free Text) Plan: PT WITH PMHX: ADMITTED FOR CHF AND COPD EXACERBATION, IV ANTIBIOTICS, IV STEROIDS, NEBULIZER TREATMENT. STILL COMPLAINING OF COUGH AND DYSPNEA ON EXERTION, MONITOR OXYGEN SATURATION DECLINE TO 88% AT ROOM AIR WHILE AT REST. OXYGEN RE-ADMINISTERED, OXYGEN SATURATION IMPROVED TO 92% WITH 4 L NC.
--- NOTE | 2017-01-21 14:06 | CP.PCM.PN ---
Subjective - Date & Time of Evaluation Date of Evaluation: 01/21/17 Time of Evaluation: 14:03 - Subjective Subjective: PT IMPROVING. MILD SOB PRESENT. HAS EVAL DONE FOR HOME O2. AFEBRILE. Objective - Vital Signs/Intake and Output Vital Signs (last 24 hours): Temp Pulse Resp BP Pulse Ox 98 F 55 L 18 154/78 H 98 01/21/17 07:20 01/21/17 07:20 01/21/17 07:20 01/21/17 07:20 01/21/17 07:20 Intake and Output: 01/21/17 01/21/17 06:59 18:59 Intake Total 420 Output Total 700 Balance -280 - Medications Medications: Current Medications Albuterol/Ipratropium (Duoneb 3 Mg/0.5 Mg (3 Ml) Ud) 3 ml INH RQ6 [facility] Last Admin: 01/21/17 13:26 Dose: 3 ml Azithromycin (Zithromax) 500 mg PO Q24H [facility] Last Admin: 01/20/17 18:12 Dose: 500 mg Enoxaparin Sodium (Lovenox) 40 mg SC DAILY [facility] Last Admin: 01/21/17 10:01 Dose: 40 mg Lactulose (Enulose) 20 gm PO HS [facility] Last Admin: 01/20/17 21:09 Dose: 20 gm Methylprednisolone (Solu-Medrol) 40 mg IVP Q8 [facility] Last Admin: 01/21/17 05:14 Dose: 40 mg Metoprolol Succinate (Toprol Xl) 25 mg PO DAILY [facility] Last Admin: 01/21/17 10:02 Dose: 25 mg Fluticasone/Salmeterol (Advair Diskus 250/50) 1 puff IH RQ12 [facility] Last Admin: 01/21/17 11:12 Dose: 1 puff - Labs Labs: 01/18/17 04:17 01/20/17 06:17 PT 14.2 SECONDS (9.7-12.2) H 01/17/17 13:57 INR 1.2 01/17/17 13:57 APTT 36 SECONDS (21-34) H 01/17/17 13:57 - Constitutional Appears: No Acute Distress, Chronically Ill - Eye Exam Eye Exam: Normal appearance - ENT Exam ENT Exam: Mucous Membranes Moist - Respiratory Exam Respiratory Exam: Decreased Breath Sounds, NORMAL BREATHING PATTERN - Cardiovascular Exam Cardiovascular Exam: REGULAR RHYTHM, +S1, +S2 - GI/Abdominal Exam GI & Abdominal Exam: Soft, Normal Bowel Sounds - Extremities Exam Extremities Exam: Full ROM, Normal Capillary Refill, Normal Inspection. absent : Joint Swelling, Pedal Edema - Neurological Exam Neurological Exam: Alert, Awake, CN II-XII Intact, Normal Gait, Oriented x3 Assessment and Plan - Assessment and Plan (Free Text) Assessment: ACUTE COPD. Plan: FOR DISCHARGE [facility] . F/U IN [address] OTHER MEDS.
--- NOTE | 2017-01-21 14:34 | PCM.HF ---
Heart Failure Core Measure - Heart Failure Ejection Fraction: 40 % or Greater NIKKI Inhibitor Prescribed: No Contraindication/Reason for not providing: EF >40 Beta-Luis Prescribed: Metoprolol Succinate Angiotensin II Receptor Luis Prescribed: No Contraindication/Reason for not providing: EF >40 AnticoagulationTherapy for Atrial Fibrillation/Atrialflutter: No Contraindication/Reason for not providing: NO H/O AFIB Aldosterone Antagonist Prescribed: No Contraindication/Reason for not providing: EF >40 Hydralazine Nitrate Prescribed: No Contraindication/Reason for not providing: EF >40 Implantable Cardioverter Defibrillator Therapy: No Contraindication/Reason for not providing: EF >40 Cardiac Resynchronization Therapy Prescribed: No Contraindication/Reason for not providing: EF >40 - Follow up Will be discharged to: Home Follow Up Date (must be within 7 days from discharge): 01/27/17 Follow Up Time: 09:00
[2017-01-21 16:16] VITALS: RESP 20
--- NOTE | 2017-01-21 17:15 | CP.PCM.PN ---
Subjective - Date & Time of Evaluation Date of Evaluation: 01/21/17 Time of Evaluation: 12:35 - Subjective Subjective: Patient seen and examined. Clinically improving with less shortness of breath Patient states that he has trouble breathing on minimal exertion On BiPAP as needed Objective - Vital Signs/Intake and Output Vital Signs (last 24 hours): Temp Pulse Resp BP Pulse Ox 97.9 F 69 20 136/64 97 01/21/17 15:20 01/21/17 16:27 01/21/17 15:20 01/21/17 15:20 01/21/17 15:20 Intake and Output: 01/21/17 01/21/17 06:59 18:59 Intake Total 420 Output Total 700 Balance -280 - Medications Medications: Current Medications Albuterol/Ipratropium (Duoneb 3 Mg/0.5 Mg (3 Ml) Ud) 3 ml INH RQ6 [facility] Last Admin: 01/21/17 13:26 Dose: 3 ml Azithromycin (Zithromax) 500 mg PO Q24H [facility] Last Admin: 01/20/17 18:12 Dose: 500 mg Enoxaparin Sodium (Lovenox) 40 mg SC DAILY [facility] Last Admin: 01/21/17 10:01 Dose: 40 mg Lactulose (Enulose) 20 gm PO HS [facility] Last Admin: 01/20/17 21:09 Dose: 20 gm Methylprednisolone (Solu-Medrol) 40 mg IVP Q8 [facility] Last Admin: 01/21/17 14:39 Dose: 40 mg Metoprolol Succinate (Toprol Xl) 25 mg PO DAILY [facility] Last Admin: 01/21/17 10:02 Dose: 25 mg Fluticasone/Salmeterol (Advair Diskus 250/50) 1 puff IH RQ12 [facility] Last Admin: 01/21/17 11:12 Dose: 1 puff - Labs Labs: 01/18/17 04:17 01/20/17 06:17 PT 14.2 SECONDS (9.7-12.2) H 01/17/17 13:57 INR 1.2 01/17/17 13:57 APTT 36 SECONDS (21-34) H 01/17/17 13:57 - Head Exam Head Exam: ATRAUMATIC, NORMOCEPHALIC - ENT Exam ENT Exam: Mucous Membranes Moist - Neck Exam Neck Exam: Normal Inspection - Respiratory Exam Respiratory Exam: Decreased Breath Sounds - Cardiovascular Exam Cardiovascular Exam: REGULAR RHYTHM - GI/Abdominal Exam GI & Abdominal Exam: Soft, Normal Bowel Sounds - Extremities Exam Extremities Exam: Full ROM, Normal Inspection - Neurological Exam Neurological Exam: Awake Assessment and Plan (1) COPD exacerbation Assessment & Plan: Continue IV steroids and switch to by mouth prednisone from tomorrow Continue antibiotics and nebulizer treatment Status: Acute (2) CHF exacerbation Status: Acute
[2017-01-22] MEDS: Albuterol-Ipratrop 3 mg / 0.5 (3 ml) UD INH SCH ×3 (01:06→13:23)
[2017-01-22 02:00] VITALS: TEMP 98.4
[2017-01-22] MEDS: MethylPREDNISolone 40 mg Vial IVP SCH (07:03)
[2017-01-22 08:23] VITALS: BP 127/62; PULSE 65; O2SAT 97
[2017-01-22] MEDS: Enoxaparin 40 mg Syringe SC SCH (09:24)
[2017-01-22] MEDS: Metoprolol Succinate 25 mg XL Tab PO SCH (09:24)
[2017-01-22] MEDS: Fluticasone-Salmeterol 250-50mcg Diskus IH SCH (10:12)
--- NOTE | 2017-01-22 13:09 | CP.PCM.PN ---
Subjective - Date & Time of Evaluation Date of Evaluation: 01/22/17 Time of Evaluation: 13:07 - Subjective Subjective: CONDITION SAME. MILD SOB. WAITING FOR HOME O2 APPROVAL Objective - Vital Signs/Intake and Output Vital Signs (last 24 hours): Temp Pulse Resp BP Pulse Ox 98.4 F 65 20 127/62 97 01/22/17 08:22 01/22/17 08:22 01/22/17 08:22 01/22/17 08:22 01/22/17 08:22 - Medications Medications: Current Medications Albuterol/Ipratropium (Duoneb 3 Mg/0.5 Mg (3 Ml) Ud) 3 ml INH RQ6 [facility] Last Admin: 01/22/17 07:17 Dose: 3 ml Azithromycin (Zithromax) 500 mg PO Q24H [facility] Last Admin: 01/21/17 18:03 Dose: 500 mg Enoxaparin Sodium (Lovenox) 40 mg SC DAILY [facility] Last Admin: 01/22/17 09:24 Dose: 40 mg Lactulose (Enulose) 20 gm PO HS [facility] Last Admin: 01/21/17 21:11 Dose: 20 gm Metoprolol Succinate (Toprol Xl) 25 mg PO DAILY [facility] Last Admin: 01/22/17 09:24 Dose: 25 mg Prednisone (Prednisone Tab) 20 mg PO Q12 [facility] Last Admin: 01/22/17 09:26 Dose: 20 mg Fluticasone/Salmeterol (Advair Diskus 250/50) 1 puff IH RQ12 [facility] Last Admin: 01/22/17 10:12 Dose: 1 puff - Labs Labs: 01/18/17 04:17 01/20/17 06:17 PT 14.2 SECONDS (9.7-12.2) H 01/17/17 13:57 INR 1.2 01/17/17 13:57 APTT 36 SECONDS (21-34) H 01/17/17 13:57 - Constitutional Appears: No Acute Distress, Chronically Ill - Eye Exam Eye Exam: Normal appearance, PERRL - ENT Exam ENT Exam: Normal Exam - Respiratory Exam Respiratory Exam: Decreased Breath Sounds, Wheezes, NORMAL BREATHING PATTERN - Cardiovascular Exam Cardiovascular Exam: REGULAR RHYTHM, +S1, +S2 - GI/Abdominal Exam GI & Abdominal Exam: Soft, Normal Bowel Sounds - Extremities Exam Extremities Exam: Full ROM, Normal Capillary Refill, Normal Inspection. absent : Joint Swelling, Pedal Edema - Back Exam Back Exam: NORMAL INSPECTION - Neurological Exam Neurological Exam: Alert, Awake, CN II-XII Intact, Normal Gait, Oriented x3 Assessment and Plan - Assessment and Plan (Free Text) Assessment: ACUTE COPD. Plan: CT PRESENT TREATMENT. DISCHARGE HOME.
--- NOTE | 2017-01-22 16:22 | VASCLAB ---
PROCEDURE: Lower Extremity Venous Duplex Exam. HISTORY: r/o DVT PRIORS: None. TECHNIQUE: Bilateral common femoral, femoral, popliteal and posterior tibial, peroneal and great saphenous veins were evaluated. Flow was assessed with color Doppler, compressibility, assessment of phasic flow and augmentation response. Report prepared by Niels Mathis, BS, RVT FINDINGS: RIGHT: 1. Common Femoral Vein: 1.1. Compressibility - Fully compressible: Thrombus - None : Flow - Phasic: Augmentation -Normal: Reflux - None. 2. Femoral Vein: 2.1. Compressibility - Fully compressible: Thrombus - None : Flow - Phasic: Augmentation -Normal: Reflux - None. 3. Popliteal Vein: 3.1. Compressibility - Fully compressible: Thrombus - None : Flow - Phasic: Augmentation -Normal: Reflux - Moderate. 3.56 seconds 4. Posterior Tibial Vein: 4.1. Compressibility - Fully compressible: Thrombus - None: Flow - Phasic: Augmentation -Normal: Reflux - Moderate. 3.17 seconds 5. Peroneal Vein: 5.1. Compressibility - Fully compressible: Thrombus - None: Flow - Phasic: Augmentation -Normal: Reflux - Moderate. 3.60 seconds 6. Great Saphenous Vein: 6.1. Compressibility - Fully compressible: Thrombus - None: Flow - Phasic: Augmentation - Normal: Reflux - None. LEFT: 1. Common Femoral Vein: 1.1. Compressibility - Fully compressible: Thrombus - None: Flow - Phasic: Augmentation -Normal: Reflux - None. 2. Femoral Vein: 2.1. Compressibility - Fully compressible: Thrombus - None: Flow - Phasic: Augmentation -Normal: Reflux - None. 3. Popliteal Vein: 3.1. Compressibility - Fully compressible: Thrombus - None : Flow - Phasic: Augmentation -Normal: Reflux - None. 4. Posterior Tibial Vein: 4.1. Compressibility - Fully compressible: Thrombus - None: Flow - Phasic: Augmentation -Normal: Reflux - None. 5. Peroneal Vein: 5.1. Compressibility - Fully compressible: Thrombus - None: Flow - Phasic: Augmentation -Normal: Reflux - Moderate. 3.60 seconds 6. Great Saphenous Vein: 6.1. Compressibility - Fully compressible: Thrombus - None: Flow - Phasic: Augmentation - Normal: Reflux - None. OTHER FINDINGS: Right: None significant. Left: None significant. IMPRESSION: Right: No evidence of deep or superficial vein thrombosis of the right lower extremity. Valvular incompetence noted of the right popliteal, posterior tibial and peroneal veins. Left: No evidence of deep or superficial vein thrombosis of the left lower extremity. Valvular incompetence noted of the left peroneal veins.
== END 2017-01-22 14:13 | disposition home or self-care (01) | DRG 190 ==
LOC: C.ER 12:23 → C.9E 16:32 → C.6T 23:04
PROVIDERS: ADMIT Internal Medicine; ATTEND Internal Medicine
PROC: 5A09557 Assistance with Respiratory Ventilation, Greater than 96 Consecutive Hours, Continuous Positive Airway Pressure (ICD-10-PCS; principal; 2017-01-17)
DX: J44.1 Chronic obstructive pulmonary disease with (acute) exacerbation (principal); I21.4 Non-ST elevation (NSTEMI) myocardial infarction; I50.9 Heart failure, unspecified; I48.91 Unspecified atrial fibrillation; D64.9 Anemia, unspecified; F17.210 Nicotine dependence, cigarettes, uncomplicated; K59.00 Constipation, unspecified

== ENCOUNTER 2017-07-01 17:59 | Observation (INO) | payer MEDICARE, MEDICAID ==
[2017-07-01 18:09] VITALS: BMI 21.4
[2017-07-01 19:35] LABS: BASO % 0.5 % (0.0-2.0); EOS # 0.1 K/uL (0.0-0.7); EOS % 2.5 % (0.0-4.0); HEMOGLOBIN 10.5 g/dL (12.0-18.0); LYMPH # 2.2 K/uL (1.0-4.3); LYMPH % 42.9 % (20.0-40.0); MEAN CELL VOLUME 89.8 fL (80.0-94.0); MEAN CORPUSCULAR HEMOGLOBIN 29.8 pg (27.0-31.0); MEAN CORPUSCULAR HGB CONC 33.2 g/dL (33.0-37.0); MEAN PLATELET VOLUME 8.9 fL (7.2-11.7); MONO # 0.3 K/uL (0.0-0.8); MONO % 5.9 % (0.0-10.0); NEUT # 2.5 K/uL (1.8-7.0); NEUT % 48.2 % (50.0-75.0); NRBC % 0.1 % (0.0-2.0); RBC 3.53 Mil/uL (4.40-5.90); RED CELL DISTRIBUTION WIDTH 17.1 % (11.5-14.5); WHITE BLOOD COUNT 5.1 K/uL (4.8-10.8)
[2017-07-01 19:53] LABS: ALBUMIN 3.9 g/dL (3.5-5.0); ALT/SGPT < 6 U/L (21-72); AST/SGOT 20 U/L (17-59); BLOOD UREA NITROGEN 17 mg/dL (9-20); CALCIUM 9.4 mg/dl (8.6-10.4); GFR AFRICAN-AMERICAN > 60; GFR NON-AFRICAN AMERICAN > 60
[2017-07-01 20:03] LABS: B-TYPE NATRIURETIC PEPTIDE 294 pg/mL (0-900)
--- NOTE | 2017-07-01 21:48 | CT ---
EXAM: CT Head Without Intravenous Contrast EXAM DATE/TIME: Exam ordered 07/01/2017 8:14 PM CLINICAL HISTORY: 86 years old, male; Signs and symptoms; Altered mental status/memory loss and weakness, extremity; Bilateral; Additional info: B/l lower extremity weakness TECHNIQUE: Axial computed tomography images of the head/brain without intravenous contrast. All CT scans at this facility use one or more dose reduction techniques, viz.: automated exposure control; ma/kV adjustment per patient size (including targeted exams where dose is matched to indication; i.e. head); or iterative reconstruction technique. COMPARISON: No relevant prior studies available. FINDINGS: Brain: There is generalized cerebral and cerebellar cortical atrophy. Low density is noted in the periventricular white matter extending into the haskins radiata and the centrum semiovale bilaterally. A lacunar infarct is noted in the right centrum semiovale near the high convexity measuring 3 mm. A 3 mm lacunar infarct is noted in the right external capsule There appears to be a partial rim calcified extra-axial mass contiguous with the floor of the right anterior cranial fossa. The mass measures 1.5 x 1.6 cm in AP and transverse dimension. There is a 6 mm parafalcine lipoma noted in the midline at the level the centrum semi-ovale. And the sphenoid sinuses. No hemorrhage. Ventricles: Unremarkable. No ventriculomegaly. Bones/joints: Unremarkable. No acute fracture. Soft tissues: Unremarkable. Sinuses: Mucosal thickening is noted within the maxillary sinuses bilaterally.Mucosal thickening extends into the ethmoid air cells, frontal sinus Mastoid air cells: Unremarkable as visualized. No mastoid effusion. IMPRESSION: 1. No acute findings. 2. Extra-axial partially calcified mass in the floor of the anterior cranial fossa on the right. The appearance suggests a meningioma. 3. Moderate cerebral and cerebellar atrophy with ventriculomegaly. 4. Chronic microvascular ischemic change in the deep white matter including 2 lacunar infarcts as described above. 5. Mild chronic paranasal sinus disease
[2017-07-01] MEDS: Sodium Chloride 0.9% 1,000 ML IV SCH (23:13)
[2017-07-01 23:17] LABS: URINE BILIRUBIN NEGATIVE (NEGATIVE); URINE BLOOD NEGATIVE (NEGATIVE); URINE CLARITY Clear (Clear); URINE COLOR Yellow (YELLOW); URINE GLUCOSE (UA) NORMAL (Normal); URINE LEUKOCYTE ESTERASE NEG Leu/uL (Negative); URINE PROTEIN NEGATIVE (NEGATIVE); URINE UROBILINOGEN NORMAL mg/dL (0.2-1.0)
--- NOTE | 2017-07-02 01:08 | C.PDOC ---
History Of Present Illness 86 year old male presents to the ER with a complaint of generalized weakness to the lower extremities that began at approximately 04:00 this morning. Patient states he normally ambulate with a walker but has been having a difficulty time using it. Denies chest pain, SOB, fever, vomiting, or change in appetite. Chief Complaint (Nursing): Weakness/Neurological Deficit History Per: Patient History/Exam Limitations: no limitations Onset/Duration Of Symptoms: Hrs Current Symptoms Are (Timing): Still Present Seizure Or Post-ictal Symptoms: None Fall Associated With With Symptoms: No Recent travel outside of the [place]: No Past Medical History Reviewed: Historical Data, Nursing Documentation, Vital Signs Vital Signs: Last Vital Signs Temp 97.9 F 07/02/17 01:00 Pulse 50 L 07/02/17 01:00 Resp 20 07/02/17 01:00 BP 159/77 H 07/02/17 01:00 Pulse Ox 99 07/02/17 01:11 - Medical History PMH: Asthma, Atrial Fibrillation, Cardia Arrhythmia, CHF, COPD - [facility] Procedures ASSISTANCE WITH RESPIRATORY VENTILATION, >96 HRS, CPAP (01/17/17) Family History: States: Unknown Family Hx - Social History Hx Alcohol Use: No Hx Substance Use: No - Immunization History Hx Tetanus Toxoid Vaccination: (unk) Hx Influenza Vaccination: Yes (2016) Hx Pneumococcal Vaccination: (unk) Review Of Systems Constitutional: Positive for: Weakness (Lower extremities). Negative for: Fever , Chills Eyes: Negative for: Vision Change Cardiovascular: Negative for: Chest Pain, Palpitations Gastrointestinal: Negative for: Vomiting Physical Exam - Physical Exam Appears: Non-toxic Skin: Normal Color, Warm, Dry Head: Atraumatic, Normacephalic Eye(s): bilateral: Normal Inspection Oral Mucosa: Dry Chest: Symmetrical, No Tenderness Cardiovascular: Rhythm Regular Respiratory: Rales (Bases), No Rhonchi, No Stridor Gastrointestinal/Abdominal: Soft, No Tenderness Neurological/Psych: Oriented x3, Normal Speech ED Course And Treatment - Laboratory Results Result Diagrams: 07/01/17 19:27 07/01/17 19:27 O2 Sat by Pulse Oximetry: 99 (Room air) Pulse Ox Interpretation: Normal Progress Note: EKG, CXR, and urine culture ordered. Case discussed with Dr. Obdulia Durbin who wanted patient hydrated and admitted to telemetry under his service. Disposition - Disposition Disposition: HOSPITALIZED Disposition Time: 21:55 Condition: STABLE - Clinical Impression Clinical Impression: Weakness of limb, Dehydration - Scribe Statement The provider has reviewed the documentation as recorded by the Scribwindy Ramirez All medical record entries made by the Joselitoibe were at my direction and personally dictated by me. I have reviewed the chart and agree that the record accurately reflects my personal performance of the history, physical exam, medical decision making, and the department course for this patient. I have also personally directed, reviewed, and agree with the discharge instructions and disposition.
--- NOTE | 2017-07-02 06:56 | RAD ---
Chest x-ray single frontal view History: Infiltrate. Comparison: None available. Findings: Mild venous congestion. Mild patchy increased markings at the lung bases. Biapical pleural thickening with upper lobe granulomatous changes. Tortuous ectatic aorta. Calcification at the aortic knob. Degenerative changes in the spine and shoulders. Impression: Mild venous congestion. Mild patchy increased markings at the lung bases. Biapical pleural thickening with upper lobe granulomatous changes. Tortuous ectatic aorta. Calcification at the aortic knob.
[2017-07-02] MEDS: Enoxaparin 40 mg Syringe SC SCH (09:50)
[2017-07-02] MEDS: Pantoprazole 40 mg EC Tab PO SCH (09:50)
[2017-07-02] MEDS: Fluticasone-Salmeterol 250-50mcg Diskus IH SCH ×3 (13:13→19:10)
[2017-07-02] MEDS: Albuterol-Ipratrop 3 mg / 0.5 (3 ml) UD INH SCH ×2 (13:14→19:06)
--- NOTE | 2017-07-02 13:33 | CP.PCM.PN ---
Subjective - Date & Time of Evaluation Date of Evaluation: 07/02/17 Time of Evaluation: 13:30 - Subjective Subjective: CONDITION SAME. LEG WEAKNESS PRESENT. Objective - Vital Signs/Intake and Output Vital Signs (last 24 hours): Temp Pulse Resp BP Pulse Ox 98.1 F 60 20 157/78 H 100 07/02/17 08:34 07/02/17 10:00 07/02/17 08:34 07/02/17 08:34 07/02/17 08:34 - Medications Medications: Current Medications Albuterol/Ipratropium (Duoneb 3 Mg/0.5 Mg (3 Ml) Ud) 3 ml INH RQ6 [facility] Last Admin: 07/02/17 13:14 Dose: 3 ml Enoxaparin Sodium (Lovenox) 40 mg SC DAILY [facility] Last Admin: 07/02/17 09:50 Dose: 40 mg Sodium Chloride (Sodium Chloride 0.9%) 1,000 mls @ 70 mls/hr IV .[id number] [facility] Last Admin: 07/01/17 23:13 Dose: 70 mls/hr Losartan Potassium (Cozaar) 25 mg PO DAILY [facility] Pantoprazole Sodium (Protonix Ec Tab) 40 mg PO DAILY [facility] Last Admin: 07/02/17 09:50 Dose: 40 mg Rosuvastatin Calcium (Crestor) 10 mg PO HS [facility] Fluticasone/Salmeterol (Advair Diskus 250/50) 1 puff IH RQ12 [facility] Last Admin: 07/02/17 13:13 Dose: Not Given - Labs Labs: 07/01/17 19:27 07/01/17 19:27 - Constitutional Appears: No Acute Distress, Chronically Ill - Eye Exam Eye Exam: EOMI, Normal appearance, PERRL Pupil Exam: NORMAL ACCOMODATION, PERRL - ENT Exam ENT Exam: Mucous Membranes Moist, Normal Exam - Neck Exam Neck Exam: Full ROM, Normal Inspection. absent: Lymphadenopathy - Respiratory Exam Respiratory Exam: Clear to Ausculation Bilateral, NORMAL BREATHING PATTERN - Cardiovascular Exam Cardiovascular Exam: REGULAR RHYTHM, +S1, +S2. absent: Murmur - GI/Abdominal Exam GI & Abdominal Exam: Soft, Normal Bowel Sounds. absent: Tenderness - Extremities Exam Extremities Exam: Full ROM, Normal Capillary Refill, Normal Inspection. absent : Joint Swelling, Pedal Edema - Neurological Exam Neurological Exam: Alert, Awake, CN II-XII Intact, Normal Gait, Oriented x3 Assessment and Plan - Assessment and Plan (Free Text) Assessment: DEHYDRATION. WEAKNESS BRADYARRHYTHMIA. COPD. Plan: PT/OT. HYDRATE. ECHO HOLTER.
[2017-07-02] MEDS: Sodium Chloride 0.9% 1,000 ML IV SCH (22:06)
--- NOTE | 2017-07-02 22:55 | HP ---
HISTORY OF PRESENT ILLNESS: This is an 86-year-old male who was brought to the emergency room. The patient complained of generalized weakness to the lower extremities that begin at approximately 4 o'clock on the day of admission. The patient states he normally ambulates with a walker but he has been having a difficult time using it. The patient denies having any chest pain, shortness of breath, fever, vomiting, or loss of appetite. No history of urinary complaints. PAST REVIEW OF SYSTEMS: Cardiovascular system, negative for chills. Respiratory system, negative for shortness of breath. GI system, negative for nausea, vomiting, abdominal pain. INTEGRITY ANALYST, the patient complained of generalized weakness and bilateral lower extremity weakness. PAST MEDICAL HISTORY: Asthma, atrial fibrillation, cardiac arrhythmia, congestive heart failure, and COPD. MEDICATIONS: The patient's medications are reviewed by me. FAMILY HISTORY: No known inherited disease. ALLERGIES: NO KNOWN ALLERGY. SOCIAL HISTORY: Nonsmoker, nonalcoholic. No IVDA. PHYSICAL EXAMINATION: GENERAL: This is an 86-year-old male, comfortable. VITAL SIGNS: Temperature 97.9, pulse 50, respirations 20, and blood pressure 159/77 mmHg. Pulse ox is 99% on room air. HEENT: Normal. JVP is flat. Carotids, no bruits. LUNGS: No rales, no wheezing. HEART: S1, S2 normal. No gallop, no murmur. ABDOMEN: Soft, nontender. No organomegaly. INTEGRITY ANALYST: No focal neurologic deficit. The patient has generalized both lower extremity weakness which make him unable to stand up and walk. EXTREMITIES: No edema of the legs. LABORATORY DATA: On admission, lab work is within normal limits. IMPRESSION: Bilateral lower extremity weakness. Dehydration. Sinus bradycardia, symptomatic. Chronic obstructive pulmonary disease. PLAN: The patient will be admitted to the floor under telemetry. We will do cardiac workup. We will continue all the medication. We will get neurological evaluation. Manda Durbin MD
[2017-07-03] MEDS: Albuterol-Ipratrop 3 mg / 0.5 (3 ml) UD INH SCH ×3 (01:27→13:38)
[2017-07-03] MEDS: Sodium Chloride 0.9% 1,000 ML IV SCH (03:57)
[2017-07-03] MEDS: Fluticasone-Salmeterol 250-50mcg Diskus IH SCH (07:31)
[2017-07-03] MEDS: Pantoprazole 40 mg EC Tab PO SCH (10:54)
[2017-07-03] MEDS: Enoxaparin 40 mg Syringe SC SCH (10:54)
--- NOTE | 2017-07-03 12:08 | CP.PCM.PN ---
Subjective - Date & Time of Evaluation Date of Evaluation: 07/03/17 Time of Evaluation: 12:06 - Subjective Subjective: mild sob present. leg fatigue. no chest pain. echo awaiting. Objective - Vital Signs/Intake and Output Vital Signs (last 24 hours): Temp Pulse Resp BP Pulse Ox 97.3 F L 60 20 155/87 H 100 07/03/17 08:45 07/03/17 08:45 07/03/17 08:45 07/03/17 08:45 07/03/17 08:45 - Medications Medications: Current Medications Albuterol/Ipratropium (Duoneb 3 Mg/0.5 Mg (3 Ml) Ud) 3 ml INH RQ6 [facility] Last Admin: 07/03/17 07:30 Dose: 3 ml Enoxaparin Sodium (Lovenox) 40 mg SC DAILY [facility] Last Admin: 07/03/17 10:54 Dose: 40 mg Sodium Chloride (Sodium Chloride 0.9%) 1,000 mls @ 70 mls/hr IV .[id number] [facility] Last Admin: 07/03/17 03:57 Dose: Not Given Losartan Potassium (Cozaar) 25 mg PO DAILY [facility] Last Admin: 07/03/17 10:54 Dose: 25 mg Pantoprazole Sodium (Protonix Ec Tab) 40 mg PO DAILY [facility] Last Admin: 07/03/17 10:54 Dose: 40 mg Rosuvastatin Calcium (Crestor) 10 mg PO HS [facility] Last Admin: 07/02/17 22:04 Dose: 10 mg Fluticasone/Salmeterol (Advair Diskus 250/50) 1 puff IH RQ12 [facility] Last Admin: 07/03/17 07:31 Dose: 1 puff - Labs Labs: 07/01/17 19:27 07/01/17 19:27 - Constitutional Appears: No Acute Distress, Chronically Ill - Eye Exam Eye Exam: EOMI, Normal appearance, PERRL Pupil Exam: NORMAL ACCOMODATION, PERRL - ENT Exam ENT Exam: Mucous Membranes Moist, Normal Exam - Neck Exam Neck Exam: Full ROM, Normal Inspection. absent: Lymphadenopathy - Respiratory Exam Respiratory Exam: Clear to Ausculation Bilateral, NORMAL BREATHING PATTERN - Cardiovascular Exam Cardiovascular Exam: REGULAR RHYTHM, +S1, +S2. absent: Murmur - GI/Abdominal Exam GI & Abdominal Exam: Soft, Normal Bowel Sounds. absent: Tenderness - Extremities Exam Extremities Exam: Full ROM, Normal Capillary Refill, Normal Inspection. absent : Joint Swelling, Pedal Edema - Neurological Exam Neurological Exam: Alert, Awake, CN II-XII Intact, Normal Gait, Oriented x3 - Psychiatric Exam Psychiatric exam: Normal Affect, Normal Mood Assessment and Plan - Assessment and Plan (Free Text) Assessment: copd chf lv dysfunction not determined. echo awaiting. Plan: for d/c home. home PT. walker. f/u office 2 wks.
--- NOTE | 2017-07-03 13:15 | CARD ---
APPROVED REPORT EKG Measurement Heart [id number] ND 200P12 [id number] <Conclusion> Sinus bradycardia with premature atrial complexes Left axis deviation Inferior infarct, age undetermined Abnormal ECG
[2017-07-03 17:58] VITALS: BP 154/72; PULSE 55; RESP 18; TEMP 97.8; O2SAT 99
--- NOTE | 2017-07-06 07:11 | CON ---
DATE: HISTORY OF PRESENT ILLNESS: This is an 86-year-old male with past medical history of generalized weakness and came to hospital with complaint of generalized weakness of lower extremities and difficulty to ambulate, walk with the cane, called to evaluate the patient. PAST MEDICAL HISTORY: Asthma, atrial fibrillation, cardiac arrhythmia, CHF, and COPD. ALLERGIES: NO KNOWN DRUG ALLERGIES. SOCIAL HISTORY: Does not smoke. Does not drink. PHYSICAL EXAMINATION: HEENT: Normocephalic, atraumatic. VITAL SIGNS: Blood pressure 159/77. NECK: Supple. NEUROLOGIC: Alert, awake, oriented to self. Cranial nerves II through XII are tested. Pupils reactive. EOMs intact. Visual filed full. No facial asymmetry. Tongue midline. Motor examination: Moves all the extremities equally. Tone normal. Deep tendon reflexes 1+. Both plantars are downgoing. Sensory appears intact. Cerebellar, gait deferred. IMPRESSION: Possible transient ischemic attack and bilateral gait difficulty. 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 David Ramsey MD
== END 2017-07-03 18:33 | disposition home or self-care (01) ==
LOC: C.ER 17:59 → C.9E 22:34 → C.6T 23:22
PROVIDERS: ADMIT Internal Medicine; ATTEND Internal Medicine
DX: J44.9 Chronic obstructive pulmonary disease, unspecified (principal); I50.9 Heart failure, unspecified; I48.91 Unspecified atrial fibrillation; E86.0 Dehydration
CPT/HCPCS: 70450; 71045; 80053; 81001; 83880; 84484; 85025; 87086; 93005; 94640; 96372; 97116; 97162; 97530; 99285; G0378; G8978; G8979; J1650; J7040

== ENCOUNTER 2017-07-14 07:42 | Inpatient (IN) | payer MEDICARE, MEDICAID ==
[2017-07-14 07:42] VITALS: BMI 21.4
[2017-07-14 08:21] LABS: BASO % 0.1 % (0.0-2.0); EOS # 0.1 K/uL (0.0-0.7); EOS % 0.8 % (0.0-4.0); HEMOGLOBIN 10.2 g/dL (12.0-18.0); LYMPH % 24.4 % (20.0-40.0); MEAN CORPUSCULAR HEMOGLOBIN 30.4 pg (27.0-31.0); MEAN CORPUSCULAR HGB CONC 33.1 g/dL (33.0-37.0); MONO # 0.7 K/uL (0.0-0.8); MONO % 8.8 % (0.0-10.0); NEUT # 5.5 K/uL (1.8-7.0); NEUT % 65.9 % (50.0-75.0); NRBC % 0.1 % (0.0-2.0); RBC 3.36 Mil/uL (4.40-5.90); RED CELL DISTRIBUTION WIDTH 17.5 % (11.5-14.5)
[2017-07-14 08:22] LABS: MEAN CELL VOLUME 91.9 fL (80.0-94.0); WHITE BLOOD COUNT 8.3 K/uL (4.8-10.8)
--- NOTE | 2017-07-14 08:28 | RAD ---
Chest x-ray single frontal view History: Shortness of breath. Comparison: 07/01/2017 Findings: Biapical pleural thickening with upper lobe granulomatous changes. Right paratracheal prominence may represent prominent vasculature. Patchy consolidative opacification at the left lung base with adjacent small left pleural effusion. Diffuse increased interstitial markings. Milder consolidative changes in the right infrahilar region. Tortuous ectatic aorta with calcification in the aorta. Mild cardiomegaly. Degenerative changes in the spine and shoulders. Impression: Biapical pleural thickening with upper lobe granulomatous changes. Right paratracheal prominence may represent prominent vasculature. Patchy consolidative opacification at the left lung base with adjacent small left pleural effusion. Diffuse increased interstitial markings. Milder consolidative changes in the right infrahilar region. Tortuous ectatic aorta with calcification in the aorta. Mild cardiomegaly.
[2017-07-14 08:29] LABS: INR 1.2; PROTHROMBIN TIME 13.3 SECONDS (9.7-12.2)
[2017-07-14 08:33] LABS: ALB/GLOB RATIO 0.9 (1.0-2.1); ALBUMIN 3.8 g/dL (3.5-5.0); CALCIUM 9.2 mg/dl (8.6-10.4)
[2017-07-14 08:45] LABS: CK-MB 3.35 ng/mL (0.0-3.38); TROPONIN I 0.026 ng/mL (0.00-0.120)
[2017-07-14] MEDS ORDERED: Azithromycin 500 MG in Sodium Chloride 0.9% 250 ML IVPB STA (09:56)
[2017-07-14] MEDS ORDERED: cefTRIAXone IV 1 gm in Dextros 50 ML IV STA (09:56)
--- NOTE | 2017-07-14 09:58 | C.PDOC ---
History Of Present Illness 86-year-old male presents to the emergency department with complaints of shortness of breath and cough for the past three days. Hhistory is limited due to language barrier. Time Seen by Provider: 07/14/17 07:55 Chief Complaint (Nursing): Respiratory Distress History Per: Patient History/Exam Limitations: language barrier Onset/Duration Of Symptoms: Days Severity: Moderate Past Medical History Reviewed: Historical Data, Nursing Documentation, Vital Signs Vital Signs: Last Vital Signs Temp 98.1 F 07/18/17 16:00 Pulse 67 07/18/17 16:00 Resp 20 07/18/17 16:00 BP 176/81 H 07/18/17 16:00 Pulse Ox 98 07/18/17 16:00 - Medical History PMH: Asthma, Atrial Fibrillation, Cardia Arrhythmia, CHF, COPD - [facility] Procedures ASSISTANCE WITH RESPIRATORY VENTILATION, >96 HRS, CPAP (01/17/17) Family History: States: No Known Family Hx - Social History Hx Alcohol Use: No Hx Substance Use: No - Immunization History Hx Tetanus Toxoid Vaccination: (unk) Hx Influenza Vaccination: Yes (2016) Hx Pneumococcal Vaccination: (unk) Review Of Systems Cardiovascular: Negative for: Chest Pain Respiratory: Positive for: Cough, Shortness of Breath Gastrointestinal: Negative for: Vomiting, Diarrhea Neurological: Negative for: Weakness, Numbness Physical Exam - Physical Exam Appears: Well, Non-toxic, No Acute Distress Skin: Normal Color, Warm, Dry, No Rash Head: Normacephalic Eye(s): bilateral: Normal Inspection Oral Mucosa: Moist Neck: Normal, Normal ROM Cardiovascular: Rhythm Regular, No Murmur Respiratory: No Accessory Muscle Use, Rales (B/L ), Rhonchi, No Wheezing Gastrointestinal/Abdominal: Normal Exam, Bowel Sounds, Soft, No Tenderness Extremity: Pedal Edema (trace, pitting edema B/L LEs), No Calf Tenderness, No Deformity Pulses: Left Dorsalis Pedis: Normal, Right Dorsalis Pedis: Normal Neurological/Psych: Oriented x3 ED Course And Treatment - Laboratory Results Result Diagrams: 07/18/17 06:45 07/18/17 06:45 ECG: Interpreted By Me, Viewed By Me ECG Rhythm: Sinus Rhythm ECG Interpretation: Abnormal Interpretation Of ECG: Left axis deviation. Q waves in III and AVF. No acute ST changes. Rate From EC O2 Sat by Pulse Oximetry: 98 (RA) Pulse Ox Interpretation: Normal - Other Rad CXR X-Ray: Viewed By Me, Read By Radiologist Interpretation: Accession No. : [id number]. Patient Name / ID : JOHN CAROLINA / [id number]. Exam Date : 07/14/2017 08:13:02 ( Approved ). Study Comment : Sex / Age : M / 86Y. Creator : Sarmad Palafox MD. Dictator : Sarmad Palafox MD. Gravity Prospecting Operator Helper : Universal Winding Machine Operator : Sarmad Palafox MD. Approver2 : Report Date : 07/14/2017 08:26:31. My Comment : . Chest x- ray single frontal view. History: Shortness of breath. Comparison: 2017. Findings: Biapical pleural thickening with upper lobe granulomatous changes. Right paratracheal prominence may represent prominent vasculature. Patchy consolidative opacification at the left lung base with adjacent small left pleural effusion. Diffuse increased interstitial markings. Milder consolidative changes in the right infrahilar region. Tortuous ectatic aorta with calcification in the aorta. Mild cardiomegaly. Degenerative changes in the spine and shoulders. Impression: Biapical pleural thickening with upper lobe granulomatous changes. Right paratracheal prominence may represent prominent vasculature. Patchy consolidative opacification at the left lung base with adjacent small left pleural effusion. Diffuse increased interstitial markings. Milder consolidative changes in the right infrahilar region. Tortuous ectatic aorta with calcification in the aorta. Mild cardiomegaly. Progress Note: Bloodwork, Chest X-Ray ordered and reviewed. Patient treated with IV Lasix, SL Nitro. CXR shows left lung base infiltrate - patient given IV rocephin and azithromycin for CAP. - Physician Consult Information Physician Contacted: Manda Durbin Outcome Of Conversation: Discussed patient with his PMD, agrees with telemetry admission for dyspnea, CHF exacerbation, pneumonia, pleural effusion. Disposition - Disposition Disposition: HOSPITALIZED Disposition Time: 10:00 Condition: STABLE - Clinical Impression Clinical Impression: Pneumonia, Dyspnea, Pleural effusion, CHF exacerbation - Scribe Statement The provider has reviewed the documentation as recorded by the Scribe (Jose Manuel Najera) All medical record entries made by the Scribe were at my direction and personally dictated by me. I have reviewed the chart and agree that the record accurately reflects my personal performance of the history, physical exam, medical decision making, and the department course for this patient. I have also personally directed, reviewed, and agree with the discharge instructions and disposition. Decision To Admit - Pt Status Changed To: Hospital Disposition Of: Inpatient - Admit Certification Admit to Inpatient:: After my assessment, the patient will require hospitalization for at least two midnights. This is because of the severity of symptoms shown, intensity of services needed, and/or the medical risk in this patient being treated as an outpatient. - InPatient: Physician Admission Certification: I certify that this patient requires 2 or more midnights of care for the following reason:: see notes - . Bed Request Type: Telemetry Admitting Physician: Manda Durbin Patient Diagnosis: Dyspnea, CHF exacerbation, Pneumonia, Pleural effusion
[2017-07-14] MEDS ORDERED: cefTRIAXone IV 1 gm in Dextros 50 ML IVPB ONE (10:07)
[2017-07-14] MEDS: Pantoprazole 40 mg EC Tab PO SCH (12:30)
[2017-07-14] MEDS: Metoprolol Succinate 25 mg XL Tab PO SCH (12:30)
[2017-07-14] MEDS: Fluticasone-Salmeterol 250-50mcg Diskus IH SCH ×2 (13:34→20:18)
[2017-07-14] MEDS ORDERED: MethylPREDNISolone 40 mg Vial IVP SCH (15:00)
[2017-07-14] MEDS: Albuterol-Ipratrop 3 mg / 0.5 (3 ml) UD INH SCH ×2 (16:02→20:18)
--- NOTE | 2017-07-14 16:34 | CP.PCM.CON ---
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 Patient has been hospitalized for similar symptoms in the past. Received empiric antibiotics and Admitted to Dr. Thomas Durbin's service. PMHx: COPD, AFib, CHF PSH: none Allergies: NKDA SH: denies tobacco use, denies alcohol and illicit drug use Assessment and Plan: 1. Pneumonia - CXR 07/14: consolidative opacification at the left lung base with adjacent small pleural effusion - CBC: WBC 8.3 - IV rocephin, azithromycin - Dr. Jonas on-board 2. COPD exacerbation - Saturating 98-100% on 3L NC - continue solumedrol - duonebs - advair - ABG - F/u CXR 3. CHF - Echo 01/17/17: moderate to severe aortic regurg, LVEF 63% - lasix Past Patient History - Infectious Disease Hx of Infectious Diseases: None - Past Medical History & Family History Past Medical History?: Yes - Past Social History Smoking Status: Former Smoker - CARDIAC Hx Atrial Fibrillation: Yes Hx Cardia Arrhythmia: Yes Hx Congestive Heart Failure: Yes - PULMONARY Hx Asthma: Yes Hx Chronic Obstructive Pulmonary Disease (COPD): Yes - MUSCULOSKELETAL/RHEUMATOLOGICAL Hx Falls: No - PSYCHIATRIC Hx Substance Use: No - SURGICAL HISTORY Hx Surgeries: Yes Hx Orthopedic Surgery: Yes (Knee surgery from accident 35-40 years ago) Other/Comment: per patient no medical history, per review of old chart patient with medical history. - ANESTHESIA Hx Anesthesia: Yes Hx Anesthesia Reactions: No Meds Allergies/Adverse Reactions: Allergies Allergy/AdvReac Type Severity Reaction Status Date / Time No Known Allergies Allergy Unverified 01/17/17 12:34 - Medications Medications: Current Medications Albuterol (Ventolin Hfa 90 Mcg/Actuation (8 G)) 1 puff IH DAILY [facility] Albuterol/Ipratropium (Duoneb 3 Mg/0.5 Mg (3 Ml) Ud) 3 ml INH RQ6 [facility] Last Admin: 07/14/17 16:02 Dose: 3 ml Azithromycin 500 mg/ Sodium (Chloride) 250 mls @ 250 mls/hr IVPB DAILY [facility] PRN Reason: Protocol Ceftriaxone Sodium 1 gm/ (Sodium Chloride) 100 mls @ 100 mls/hr IVPB DAILY [facility] PRN Reason: Protocol Methylprednisolone (Solu-Medrol) 40 mg IVP Q8 [facility] Metoprolol Succinate (Toprol Xl) 25 mg PO DAILY [facility] Last Admin: 07/14/17 12:30 Dose: 25 mg Pantoprazole Sodium (Protonix Ec Tab) 40 mg PO DAILY [facility] Last Admin: 07/14/17 12:30 Dose: 40 mg Rosuvastatin Calcium (Crestor) 10 mg PO HS [facility] Fluticasone/Salmeterol (Advair Diskus 250/50) 1 puff IH Q12 [facility] Last Admin: 07/14/17 13:34 Dose: Not Given Results - Vital Signs Recent Vital Signs: Last Vital Signs Temp 97.7 F 07/14/17 15:05 Pulse 66 07/14/17 16:07 Resp 20 07/14/17 15:05 BP 154/82 H 07/14/17 15:05 Pulse Ox 98 07/14/17 15:05 - Labs Result Diagrams: 07/14/17 08:17 07/14/17 08:17 Labs: Laboratory Results - last 24 hr 07/14/17 07/14/17 07/14/17 08:17 08:17 08:17 WBC 8.3 D RBC 3.36 L Hgb 10.2 L Hct 30.9 L MCV 91.9 D MCH 30.4 MCHC 33.1 RDW 17.5 H Plt Count 170 MPV 10.0 Neut % (Auto) 65.9 Lymph % (Auto) 24.4 [place] % (Auto) 8.8 Eos % (Auto) 0.8 Baso % (Auto) 0.1 Neut # (Auto) 5.5 Lymph # (Auto) 2.0 [place] # (Auto) 0.7 Eos # (Auto) 0.1 Baso # (Auto) 0.0 PT 13.3 H INR 1.2 APTT 35 H Sodium 144 Potassium 3.7 Chloride 109 H Carbon Dioxide 22 Anion Gap 17 BUN 21 H Creatinine 1.4 Est GFR ( Amer) 58 Est GFR (Non-Af Amer) 48 Random Glucose 122 H Calcium 9.2 Total Bilirubin 0.7 AST 20 ALT 8 L D Alkaline Phosphatase 48 Total Creatine Kinase 142 CK-MB (Mass) 3.35 Troponin I 0.0260 NT-Pro-B Natriuret Pep 1870 H Total Protein 7.7 Albumin 3.8 Globulin 4.0 H Albumin/Globulin Ratio 0.9 L
[2017-07-14] MEDS ORDERED: Albuterol-Ipratrop 3 mg / 0.5 (3 ml) UD INH SCH (20:00)
[2017-07-14] MEDS: MethylPREDNISolone 40 mg Vial IVP SCH (21:29)
--- NOTE | 2017-07-14 22:18 | HP ---
HISTORY OF PRESENT ILLNESS: This is an 86-year-old [place] male who came to the emergency room with history of increasing shortness of breath and cough which started for the last three days. The patient's family called yesterday to my office about this problem. The patient was advised to come to the emergency room. The patient denies having any chest pain. No history of nausea or vomiting. REVIEW OF SYSTEMS: Respiratory: Mentioned as above. Cardiovascular: Negative for chest pain. GI: Negative for nausea, vomiting, or diarrhea. ART MANAGER: No focal neurological complaints offered. Mild edema of the leg present. No urinary complaints. Psychiatric: The patient has anxiety. PAST MEDICAL HISTORY: History of chronic obstructive pulmonary disease, atrial fibrillation, cardiac arrhythmia, CHF. FAMILY HISTORY: No known inherited disease. SOCIAL HISTORY: Nonsmoker. Nonalcoholic. No IVDA. ALLERGIES: NO KNOWN ALLERGIES. MEDICATIONS: The patient's medications reviewed by me. PHYSICAL EXAMINATION: GENERAL: This is an 86-year-old [place] male, tachypneic, dyspneic. VITAL SIGNS: With temperature 97.8, pulse 64, respirations 21, blood pressure 137/65 mmHg, pulse oximetry 98% on room air. HEENT: Normal. JVP is flat. Carotids, no bruit. LUNGS: Rales present and wheezing present. The patient also has throat congestion. ABDOMEN: Soft and nontender. No organomegaly. ART MANAGER: No focal neurological deficits. EXTREMITIES: Trace edema of the leg present. LABORATORY DATA: On admission, lab work showing anemia, hemoglobin of 10.2. BMP shows BUN 21, blood sugar 122, potassium 3.7. Chest x-ray shows left lower lobe infiltrate with small effusion. Pulmonary congestion present. IMPRESSION: 1. Acute congestive heart failure on chronic. 2. Acute chronic obstructive pulmonary disease. 3. Pneumonia. PLAN: The patient will be admitted to telemetry. We will get ID and pulmonary evaluation done. We will continue other medications. We will give IV antibiotics. Manda Durbin MD
[2017-07-15] MEDS: Albuterol-Ipratrop 3 mg / 0.5 (3 ml) UD INH SCH ×4 (01:20→19:48)
[2017-07-15] MEDS: MethylPREDNISolone 40 mg Vial IVP SCH ×3 (05:28→21:37)
[2017-07-15] MEDS: Pantoprazole 40 mg EC Tab PO SCH (10:05)
[2017-07-15] MEDS: Metoprolol Succinate 25 mg XL Tab PO SCH (10:05)
[2017-07-15] MEDS: Fluticasone-Salmeterol 250-50mcg Diskus IH SCH ×2 (10:24→19:48)
[2017-07-15] MEDS: Albuterol HFA 90 mcg/actuation (8 g) IH SCH (10:39)
[2017-07-15] MEDS: Azithromycin 500 MG in Sodium Chloride 0.9% 250 ML IVPB SCH (11:03)
--- NOTE | 2017-07-15 12:20 | CP.PCM.PN ---
Subjective - Date & Time of Evaluation Date of Evaluation: 07/15/17 Time of Evaluation: 12:18 - Subjective Subjective: FEELS BETTER. LESS SOB. NO CHEST PAIN. Objective - Vital Signs/Intake and Output Vital Signs (last 24 hours): Temp Pulse Resp BP Pulse Ox 97.6 F 61 18 164/81 H 98 07/15/17 07:25 07/15/17 07:25 07/15/17 07:25 07/15/17 07:25 07/15/17 07:25 Intake and Output: 07/15/17 07/15/17 06:59 18:59 Intake Total 100 Balance 100 - Medications Medications: Current Medications Albuterol (Ventolin Hfa 90 Mcg/Actuation (8 G)) 1 puff IH DAILY [facility] Albuterol/Ipratropium (Duoneb 3 Mg/0.5 Mg (3 Ml) Ud) 3 ml INH RQ6 [facility] Last Admin: 07/15/17 07:42 Dose: 3 ml Enoxaparin Sodium (Lovenox) 40 mg SC DAILY [facility] Azithromycin 500 mg/ Sodium (Chloride) 250 mls @ 250 mls/hr IVPB DAILY [facility] PRN Reason: Protocol Last Admin: 07/15/17 11:03 Dose: 250 mls/hr Ceftriaxone Sodium 1 gm/ (Sodium Chloride) 100 mls @ 100 mls/hr IVPB DAILY [facility] PRN Reason: Protocol Last Admin: 07/15/17 10:06 Dose: 100 mls/hr Methylprednisolone (Solu-Medrol) 40 mg IVP Q8 [facility] Last Admin: 07/15/17 05:28 Dose: 40 mg Metoprolol Succinate (Toprol Xl) 25 mg PO DAILY [facility] Last Admin: 07/15/17 10:05 Dose: 25 mg Pantoprazole Sodium (Protonix Ec Tab) 40 mg PO DAILY [facility] Last Admin: 07/15/17 10:05 Dose: 40 mg Pneumococcal Polyvalent Vaccine (Pneumovax 23 Vaccine) 0.5 ml IM .ONCE ONE Stop: 07/16/17 10:01 Rosuvastatin Calcium (Crestor) 10 mg PO HS [facility] Last Admin: 07/14/17 21:29 Dose: 10 mg Fluticasone/Salmeterol (Advair Diskus 250/50) 1 puff IH Q12 [facility] Last Admin: 07/14/17 20:18 Dose: 1 puff - Labs Labs: 07/14/17 08:17 18 08:17 PT 13.3 SECONDS (9.7-12.2) H 07/14/17 08:17 INR 1.2 07/14/17 08:17 APTT 35 SECONDS (21-34) H 07/14/17 08:17 - Constitutional Appears: Chronically Ill - Eye Exam Eye Exam: EOMI, Normal appearance, PERRL Pupil Exam: NORMAL ACCOMODATION, PERRL - ENT Exam ENT Exam: Mucous Membranes Moist, Normal Exam - Neck Exam Neck Exam: Full ROM, Normal Inspection. absent: Lymphadenopathy - Respiratory Exam Respiratory Exam: Clear to Ausculation Bilateral, NORMAL BREATHING PATTERN - Cardiovascular Exam Cardiovascular Exam: REGULAR RHYTHM, +S1, +S2. absent: Murmur - GI/Abdominal Exam GI & Abdominal Exam: Soft, Normal Bowel Sounds. absent: Tenderness - Extremities Exam Extremities Exam: Full ROM, Normal Capillary Refill, Normal Inspection. absent : Joint Swelling, Pedal Edema - Back Exam Back Exam: NORMAL INSPECTION - Neurological Exam Neurological Exam: Alert, Awake, CN II-XII Intact, Normal Gait, Oriented x3 - Psychiatric Exam Psychiatric exam: Normal Affect, Normal Mood Assessment and Plan - Assessment and Plan (Free Text) Assessment: ACUTE COPD. ACUTE ON CHRONIC CHF WITH DIASTOLIC DYSFUNCTION. Plan: CT PRESENT TREATMENT.
[2017-07-15] MEDS: Enoxaparin 40 mg Syringe SC SCH (12:23)
--- NOTE | 2017-07-15 15:38 | CP.PCM.PN ---
Subjective - Date & Time of Evaluation Date of Evaluation: 07/15/17 Time of Evaluation: 10:20 - Subjective Subjective: Patient seen and examined at bedside in no acute distress. No acute events overnight per nursing. Patient is still noticeably winded and wheezing. afebrile. Assessment and Plan: 1. Pneumonia - CXR 07/14: consolidative opacification at the left lung base with adjacent small pleural effusion - CBC: WBC 8.3 - IV rocephin, azithromycin - Dr. Jonas on-board 2. COPD exacerbation - Saturating 96-100% on 3L NC - continue solumedrol - nebulizer treatments - ABG - F/u CXR 3. CHF - Echo 01/17/17: moderate to severe aortic regurg, LVEF 63% - lasix Objective - Vital Signs/Intake and Output Vital Signs (last 24 hours): Temp Pulse Resp BP Pulse Ox 97.6 F 78 18 145/80 98 07/15/17 07:25 07/15/17 12:50 07/15/17 07:25 07/15/17 12:51 07/15/17 07:25 Intake and Output: 07/15/17 07/15/17 06:59 18:59 Intake Total 100 490 Output Total 700 Balance 100 -210 - Medications Medications: Current Medications Albuterol (Ventolin Hfa 90 Mcg/Actuation (8 G)) 1 puff IH DAILY [facility] Albuterol/Ipratropium (Duoneb 3 Mg/0.5 Mg (3 Ml) Ud) 3 ml INH RQ6 [facility] Last Admin: 07/15/17 13:24 Dose: 3 ml Enoxaparin Sodium (Lovenox) 40 mg SC DAILY [facility] Last Admin: 07/15/17 12:23 Dose: 40 mg Azithromycin 500 mg/ Sodium (Chloride) 250 mls @ 250 mls/hr IVPB DAILY [facility] PRN Reason: Protocol Last Admin: 07/15/17 11:03 Dose: 250 mls/hr Ceftriaxone Sodium 1 gm/ (Sodium Chloride) 100 mls @ 100 mls/hr IVPB DAILY [facility] PRN Reason: Protocol Last Admin: 07/15/17 10:06 Dose: 100 mls/hr Methylprednisolone (Solu-Medrol) 40 mg IVP Q8 [facility] Last Admin: 07/15/17 13:34 Dose: 40 mg Metoprolol Succinate (Toprol Xl) 25 mg PO DAILY [facility] Last Admin: 07/15/17 10:05 Dose: 25 mg Pantoprazole Sodium (Protonix Ec Tab) 40 mg PO DAILY [facility] Last Admin: 07/15/17 10:05 Dose: 40 mg Pneumococcal Polyvalent Vaccine (Pneumovax 23 Vaccine) 0.5 ml IM .ONCE ONE Stop: 07/16/17 10:01 Rosuvastatin Calcium (Crestor) 10 mg PO HS [facility] Last Admin: 07/14/17 21:29 Dose: 10 mg Fluticasone/Salmeterol (Advair Diskus 250/50) 1 puff IH Q12 [facility] Last Admin: 07/15/17 10:24 Dose: 1 puff - Labs Labs: 07/14/17 08:17 07/14/17 08:17 PT 13.3 SECONDS (9.7-12.2) H 07/14/17 08:17 INR 1.2 07/14/17 08:17 APTT 35 SECONDS (21-34) H 07/14/17 08:17
--- NOTE | 2017-07-15 15:58 | CP.PCM.CON ---
History of Present Illness - History of Present Illness History of Present Illness: 86M with PMHx of COPD, AFib and CHF presented to the ED for shortness of breath and cough x 3 days. Patient has been hospitalized for similar symptoms in the past. Received empiric antibiotics and Admitted to Dr. Thomas Durbin's service. ID consulted for antibiotic management No hx of TB but CXR shows possible granulomatous disease On high dose steroids will need to be screened for TB exposure PMHx: COPD, AFib, CHF PSH: none Allergies: NKDA SH: denies tobacco use, denies alcohol and illicit drug use Review of Systems - Review of Systems All systems: reviewed and no additional remarkable complaints except - Constitutional Constitutional: As Per HPI - EENT Eyes: absent: As Per HPI, Blind Spots, Blurred Vision, Change in Vision, Decreased Night Vision, Diplopia, Discharge, Dry Eye, Exophthalmos, Floaters, Irritation, Itchy Eyes, Loss of Peripheral Vision, Pain, Photophobia, Requires Corrective Lenses, Sees Flashes, Spots in Vision, Tunnel Vision, Other Visual Disturbances, Loss of Vision, Other Ears: absent: As Per HPI, Decreased Hearing, Ear Discharge, Ear Pain, Tinnitus, Abnormal Hearing, Disequilibrium, Dizziness, Other Nose/Mouth/Throat: absent: As Per HPI, Epistaxis, Nasal Congestion, Nasal Discharge, Nasal Obstruction, Nasal Trauma, Nose Pain, Post Nasal Drip, Sinus Pain, Sinus Pressure, Bleeding Gums, Change in Voice, Dental Pain, Dry Mouth, Dysphagia, Halitosis, Hoarsness, Lip Swelling, Mouth Lesions, Mouth Pain, Odynophagia, Sore Throat, Throat Swelling, Tongue Swelling, Facial Pain, Neck Pain, Neck Mass, Other - Cardiovascular Cardiovascular: absent: As Per HPI, Acrocyanosis, Chest Pain, Chest Pain at Rest , Chest Pain with Activity, Claudication, Diaphoresis, Dyspnea, Dyspnea on Exertion, Edema, Irregular Heart Rhythm, Pain Radiating to Arm/Neck/Jaw, Leg Edema, Leg Ulcers, Lightheadedness, Orthopnea, Palpitations, Paroxysmal Nocturnal Dyspnea, Pedal Edema, Radiating Pain, Rapid Heart Rate, Slow Heart Rate, Syncope, Other - Respiratory Respiratory: As Per HPI - Gastrointestinal Gastrointestinal: absent: As Per HPI, Abdominal Pain, Belching, Bloating, Change in Bowel Habits, Change in Stool Character, Coffee Ground Emesis, Constipation, Cramping, Diarrhea, Dyspepsia, Dysphagia, Early Satiety, Excessive Flatus, Fecal Incontinence, Heartburn, Hematemesis, Hematochezia, Loose Stools, Melena, Nausea, Odynophagia, Temesmus, Vomiting, Other - Genitourinary Genitourinary: absent: As Per HPI, Change in Urinary Stream, Difficulty Urinating, Dysuria, Flank Pain, Hematuria, Pyuria, Nocturia, Urinary Incontinence, Urinary Frequency, Urinary Hesitance, Urinary Urgency, Voiding Freq/Small Amts, Freq UTI, Hx Renal/Bladder Calculi, Hx /Renal Surgery, Bladder Distension, Other - Musculoskeletal Musculoskeletal: absent: As Per HPI, Abnormal Gait, Arthralgias, Atrophy, Back Pain, Deformity, Joint Swelling, Limited Range of Motion, Loss of Height, Muscle Cramps, Muscle Weakness, Myalgias, Neck Pain, Numbness, Radiating Pain into Limb, Stiffness, Tingling, Other - Integumentary Integumentary: absent: As Per HPI, Acne, Alopecia, Bleeding Lesions, Change in Hair, Change in Nails, Change in Pigmentation, Changing Lesions, Dry Skin, Erythema, Furuncle, Hirsutism, Lesions, New Lesions, Non-Healing Lesions, Photosensitivity, Pruritus, Rash, Skin Pain, Skin Ulcer, Sores, Striae, Swelling , Unusual Bruising, Wounds, Jaundice, Other - Neurological Neurological: absent: As Per HPI, Abnormal Gait, Abnormal Hearing, Abnormal Movements, Abnormal Speech, Behavioral Changes, Burning Sensations, Confusion, Convulsions, Disequilibrium, Dizziness, Numbness, Focal Weakness, Frequent Falls , Headaches, Lack of Coordination, Loss of Vision, Memory Loss, Paresthesias, Radicular Pain, Restless Legs, Sensory Deficit, Syncope, Tingling, Tremor, Vertigo, Weakness, Other Visual Disturbances, Other - Psychiatric Psychiatric: absent: As Per HPI, Abnormal Sleep Pattern, Anhedonia, Anxiety, Auditory Hallucinations, Behavioral Changes, Change in Appetite, Change in Libido, Confusion, Depression, Difficulty Concentrating, Hallucinations, Homicidal Ideation, Hopelessness, Irritability, Memory Loss, Mood Swings, Panic Attacks, Paranoia, Suicidal Ideation, Visual Hallucinations, Tactile Hallucinations, Other - Endocrine Endocrine: absent: As Per HPI, Change in Body Appearance, Change in Libido, Cold Intolorance, Deepening of Voice, Excessive Sweating, Fatigue, Flushing, Heat Intolorance, Increase in Ring/Shoe/Hat Size, Palpitations, Polydipsia, Polyphagia, Polyuria, Other - Hematologic/Lymphatic Hematologic: absent: As Per HPI, Easy Bleeding, Easy Bruising, Lymphadenopathy, Other Past Patient History - Infectious Disease Hx of Infectious Diseases: None - Past Medical History & Family History Past Medical History?: Yes - Past Social History Smoking Status: Former Smoker - CARDIAC Hx Congestive Heart Failure: Yes - PULMONARY Hx Chronic Obstructive Pulmonary Disease (COPD): Yes - MUSCULOSKELETAL/RHEUMATOLOGICAL Hx Falls: No - PSYCHIATRIC Hx Substance Use: No - SURGICAL HISTORY Hx Surgeries: Yes Hx Orthopedic Surgery: Yes (Knee surgery from accident 35-40 years ago) Other/Comment: per patient no medical history, per review of old chart patient with medical history. - ANESTHESIA Hx Anesthesia: Yes Hx Anesthesia Reactions: No Meds Allergies/Adverse Reactions: Allergies Allergy/AdvReac Type Severity Reaction Status Date / Time No Known Allergies Allergy Unverified 01/17/17 12:34 - Medications Medications: Current Medications Albuterol (Ventolin Hfa 90 Mcg/Actuation (8 G)) 1 puff IH DAILY [facility] Albuterol/Ipratropium (Duoneb 3 Mg/0.5 Mg (3 Ml) Ud) 3 ml INH RQ6 [facility] Last Admin: 07/15/17 13:24 Dose: 3 ml Enoxaparin Sodium (Lovenox) 40 mg SC DAILY [facility] Last Admin: 07/15/17 12:23 Dose: 40 mg Azithromycin 500 mg/ Sodium (Chloride) 250 mls @ 250 mls/hr IVPB DAILY [facility] PRN Reason: Protocol Last Admin: 07/15/17 11:03 Dose: 250 mls/hr Ceftriaxone Sodium 1 gm/ (Sodium Chloride) 100 mls @ 100 mls/hr IVPB DAILY [facility] PRN Reason: Protocol Last Admin: 07/15/17 10:06 Dose: 100 mls/hr Methylprednisolone (Solu-Medrol) 40 mg IVP Q8 [facility] Last Admin: 07/15/17 13:34 Dose: 40 mg Metoprolol Succinate (Toprol Xl) 25 mg PO DAILY [facility] Last Admin: 07/15/17 10:05 Dose: 25 mg Pantoprazole Sodium (Protonix Ec Tab) 40 mg PO DAILY [facility] Last Admin: 07/15/17 10:05 Dose: 40 mg Pneumococcal Polyvalent Vaccine (Pneumovax 23 Vaccine) 0.5 ml IM .ONCE ONE Stop: 07/16/17 10:01 Rosuvastatin Calcium (Crestor) 10 mg PO HS [facility] Last Admin: 07/14/17 21:29 Dose: 10 mg Fluticasone/Salmeterol (Advair Diskus 250/50) 1 puff IH Q12 [facility] Last Admin: 07/15/17 10:24 Dose: 1 puff Physical Exam - Constitutional Appears: Chronically Ill - Head Exam Head Exam: ATRAUMATIC, NORMOCEPHALIC - Eye Exam Eye Exam: PERRL. absent: Scleral icterus - ENT Exam ENT Exam: Mucous Membranes Dry - Neck Exam Neck exam: Negative for: Lymphadenopathy - Respiratory Exam Respiratory Exam: Decreased Breath Sounds, Prolonged Expiratory Phase, Rhonchi - Cardiovascular Exam Cardiovascular Exam: REGULAR RHYTHM, +S1, +S2 - GI/Abdominal Exam GI & Abdominal Exam: Diminished Bowel Sounds, Soft. absent: Tenderness - Rectal Exam Rectal Exam: Deferred - Exam Exam: NORMAL INSPECTION - Extremities Exam Extremities exam: Positive for: pedal pulses present. Negative for: calf tenderness, pedal edema - Back Exam Back exam: absent: CVA tenderness (L), CVA tenderness (R) - Neurological Exam Neurological exam: Alert, CN II-XII Intact, Oriented x3, Reflexes Normal - Psychiatric Exam Psychiatric exam: Depressed - Skin Skin Exam: Dry, Intact Results - Vital Signs Recent Vital Signs: Last Vital Signs Temp 97.6 F 07/15/17 07:25 Pulse 78 07/15/17 12:50 Resp 18 07/15/17 07:25 BP 145/80 07/15/17 12:51 Pulse Ox 98 07/15/17 07:25 - Labs Result Diagrams: 07/14/17 08:17 07/14/17 08:17 Assessment & Plan (1) CHF exacerbation Status: Acute (2) COPD exacerbation Status: Acute (3) Dehydration Status: Acute - Assessment and Plan (Free Text) Assessment: No hx of TB but CXR shows possible granulomatous disease On high dose steroids will need to be screened for TB exposure
--- NOTE | 2017-07-15 19:21 | CARD ---
APPROVED REPORT EKG Measurement Heart [id number] [place] 180P68 [id number] <Conclusion> Normal sinus rhythm Cannot rule out Inferior infarct, age undetermined Abnormal ECG
[2017-07-15] MEDS ORDERED: Albuterol-Ipratrop 3 mg / 0.5 (3 ml) UD INH STA (21:06)
[2017-07-16] MEDS: Albuterol-Ipratrop 3 mg / 0.5 (3 ml) UD INH SCH ×4 (01:34→20:10)
[2017-07-16] MEDS: MethylPREDNISolone 40 mg Vial IVP SCH ×3 (05:57→21:17)
[2017-07-16] MEDS ORDERED: Pneumococcal 23-Valent Vaccine IM ONE (10:00)
[2017-07-16] MEDS: Albuterol HFA 90 mcg/actuation (8 g) IH SCH (10:38)
[2017-07-16] MEDS: Fluticasone-Salmeterol 250-50mcg Diskus IH SCH (10:40)
[2017-07-16] MEDS: Azithromycin 500 MG in Sodium Chloride 0.9% 250 ML IVPB SCH (10:45)
[2017-07-16] MEDS: Enoxaparin 40 mg Syringe SC SCH (10:46)
[2017-07-16] MEDS: Metoprolol Succinate 25 mg XL Tab PO SCH (10:46)
[2017-07-16] MEDS: Pantoprazole 40 mg EC Tab PO SCH (10:46)
--- NOTE | 2017-07-16 15:44 | CP.PCM.PN ---
Subjective - Date & Time of Evaluation Date of Evaluation: 07/16/17 Time of Evaluation: 15:42 - Subjective Subjective: SOB. COPD. CHF. Objective - Vital Signs/Intake and Output Vital Signs (last 24 hours): Temp Pulse Resp BP Pulse Ox 97.4 F L 65 18 131/82 95 07/16/17 08:52 07/16/17 12:00 07/16/17 08:52 07/16/17 08:52 07/16/17 08:52 Intake and Output: 07/16/17 07/16/17 06:59 18:59 Intake Total 360 Output Total 750 Balance -390 - Medications Medications: Current Medications Albuterol (Ventolin Hfa 90 Mcg/Actuation (8 G)) 1 puff IH DAILY [facility] Last Admin: 07/16/17 10:38 Dose: Not Given Albuterol/Ipratropium (Duoneb 3 Mg/0.5 Mg (3 Ml) Ud) 3 ml INH RQ6 [facility] Last Admin: 07/16/17 13:20 Dose: 3 ml Enoxaparin Sodium (Lovenox) 40 mg SC DAILY [facility] Last Admin: 07/16/17 10:46 Dose: 40 mg Azithromycin 500 mg/ Sodium (Chloride) 250 mls @ 250 mls/hr IVPB DAILY [facility] PRN Reason: Protocol Last Admin: 07/16/17 10:45 Dose: 250 mls/hr Ceftriaxone Sodium 1 gm/ (Sodium Chloride) 100 mls @ 100 mls/hr IVPB DAILY [facility] PRN Reason: Protocol Last Admin: 07/16/17 10:46 Dose: 100 mls/hr Methylprednisolone (Solu-Medrol) 40 mg IVP Q8 [facility] Last Admin: 07/16/17 14:34 Dose: 40 mg Metoprolol Succinate (Toprol Xl) 25 mg PO DAILY [facility] Last Admin: 07/16/17 10:46 Dose: 25 mg Pantoprazole Sodium (Protonix Ec Tab) 40 mg PO DAILY [facility] Last Admin: 07/16/17 10:46 Dose: 40 mg Rosuvastatin Calcium (Crestor) 10 mg PO HS [facility] Last Admin: 07/15/17 21:37 Dose: 10 mg Fluticasone/Salmeterol (Advair Diskus 250/50) 1 puff IH Q12 [facility] Last Admin: 07/16/17 10:40 Dose: 1 puff - Labs Labs: 07/14/17 08:17 18 08:17 PT 13.3 SECONDS (9.7-12.2) H 07/14/17 08:17 INR 1.2 07/14/17 08:17 APTT 35 SECONDS (21-34) H 07/14/17 08:17 - Constitutional Appears: No Acute Distress, Chronically Ill - Head Exam Head Exam: ATRAUMATIC, NORMAL INSPECTION, NORMOCEPHALIC - Eye Exam Eye Exam: EOMI, Normal appearance, PERRL Pupil Exam: NORMAL ACCOMODATION, PERRL - ENT Exam ENT Exam: Mucous Membranes Moist, Normal Exam - Neck Exam Neck Exam: Full ROM, Normal Inspection. absent: Lymphadenopathy - Respiratory Exam Respiratory Exam: Clear to Ausculation Bilateral, NORMAL BREATHING PATTERN - Cardiovascular Exam Cardiovascular Exam: REGULAR RHYTHM, +S1, +S2. absent: Murmur - GI/Abdominal Exam GI & Abdominal Exam: Soft, Normal Bowel Sounds. absent: Tenderness - Extremities Exam Extremities Exam: Full ROM, Normal Capillary Refill, Normal Inspection. absent : Joint Swelling, Pedal Edema - Neurological Exam Neurological Exam: Alert, Awake, CN II-XII Intact, Normal Gait, Oriented x3 - Psychiatric Exam Psychiatric exam: Normal Affect, Normal Mood - Skin Skin Exam: Dry, Intact, Normal Color, Warm Assessment and Plan - Assessment and Plan (Free Text) Assessment: R/O TB. COPD. Plan: W/U TO R/O TB. CT OTHER TREATMENT.
--- NOTE | 2017-07-16 17:27 | CP.PCM.PN ---
Subjective - Date & Time of Evaluation Date of Evaluation: 07/16/17 Time of Evaluation: 10:50 - Subjective Subjective: Patient seen and examined Breathing much improved complaining of slight cough respiratory isolation per infectious disease Afebrile No hemoptysis Objective - Vital Signs/Intake and Output Vital Signs (last 24 hours): Temp Pulse Resp BP Pulse Ox 97.2 F L 65 20 154/80 H 98 07/16/17 16:30 07/16/17 16:30 07/16/17 16:30 07/16/17 16:30 07/16/17 16:30 Intake and Output: 07/16/17 07/16/17 06:59 18:59 Intake Total 360 Output Total 750 Balance -390 - Medications Medications: Current Medications Albuterol (Ventolin Hfa 90 Mcg/Actuation (8 G)) 1 puff IH DAILY [facility] Last Admin: 07/16/17 10:38 Dose: Not Given Albuterol/Ipratropium (Duoneb 3 Mg/0.5 Mg (3 Ml) Ud) 3 ml INH RQ6 [facility] Last Admin: 07/16/17 13:20 Dose: 3 ml Enoxaparin Sodium (Lovenox) 40 mg SC DAILY [facility] Last Admin: 07/16/17 10:46 Dose: 40 mg Azithromycin 500 mg/ Sodium (Chloride) 250 mls @ 250 mls/hr IVPB DAILY [facility] PRN Reason: Protocol Last Admin: 07/16/17 10:45 Dose: 250 mls/hr Ceftriaxone Sodium 1 gm/ (Sodium Chloride) 100 mls @ 100 mls/hr IVPB DAILY [facility] PRN Reason: Protocol Last Admin: 07/16/17 10:46 Dose: 100 mls/hr Methylprednisolone (Solu-Medrol) 40 mg IVP Q8 [facility] Last Admin: 07/16/17 14:34 Dose: 40 mg Metoprolol Succinate (Toprol Xl) 25 mg PO DAILY [facility] Last Admin: 07/16/17 10:46 Dose: 25 mg Pantoprazole Sodium (Protonix Ec Tab) 40 mg PO DAILY [facility] Last Admin: 07/16/17 10:46 Dose: 40 mg Rosuvastatin Calcium (Crestor) 10 mg PO HS [facility] Last Admin: 07/15/17 21:37 Dose: 10 mg Fluticasone/Salmeterol (Advair Diskus 250/50) 1 puff IH Q12 [facility] Last Admin: 07/16/17 10:40 Dose: 1 puff - Labs Labs: 07/14/17 08:17 07/14/17 08:17 PT 13.3 SECONDS (9.7-12.2) H 07/14/17 08:17 INR 1.2 07/14/17 08:17 APTT 35 SECONDS (21-34) H 07/14/17 08:17 - Head Exam Head Exam: ATRAUMATIC, NORMOCEPHALIC - Eye Exam Eye Exam: Normal appearance - ENT Exam ENT Exam: Mucous Membranes Moist - Neck Exam Neck Exam: Normal Inspection - Respiratory Exam Respiratory Exam: Decreased Breath Sounds - Cardiovascular Exam Cardiovascular Exam: REGULAR RHYTHM - GI/Abdominal Exam GI & Abdominal Exam: Soft, Normal Bowel Sounds - Extremities Exam Extremities Exam: Normal Inspection - Neurological Exam Neurological Exam: Alert Assessment and Plan (1) COPD exacerbation Assessment & Plan: cont nebulizer treatment and IV steroids sputum AFB Unlikely pulmonary tuberculosis Status: Acute
--- NOTE | 2017-07-16 17:39 | CP.PCM.PN ---
Subjective - Date & Time of Evaluation Date of Evaluation: 07/16/17 Time of Evaluation: 07:00 - Subjective Subjective: less cough and congestion isolation in view of need for high dose steroids and cxr fndings of old granulomatous disease TB quant sent iv antibiotics ordered Objective - Vital Signs/Intake and Output Vital Signs (last 24 hours): Temp Pulse Resp BP Pulse Ox 97.2 F L 65 20 154/80 H 98 07/16/17 16:30 07/16/17 16:30 07/16/17 16:30 07/16/17 16:30 07/16/17 16:30 Intake and Output: 07/16/17 07/16/17 06:59 18:59 Intake Total 360 Output Total 750 Balance -390 - Medications Medications: Current Medications Albuterol (Ventolin Hfa 90 Mcg/Actuation (8 G)) 1 puff IH DAILY [facility] Last Admin: 07/16/17 10:38 Dose: Not Given Albuterol/Ipratropium (Duoneb 3 Mg/0.5 Mg (3 Ml) Ud) 3 ml INH RQ6 [facility] Last Admin: 07/16/17 13:20 Dose: 3 ml Enoxaparin Sodium (Lovenox) 40 mg SC DAILY [facility] Last Admin: 07/16/17 10:46 Dose: 40 mg Azithromycin 500 mg/ Sodium (Chloride) 250 mls @ 250 mls/hr IVPB DAILY [facility] PRN Reason: Protocol Last Admin: 07/16/17 10:45 Dose: 250 mls/hr Ceftriaxone Sodium 1 gm/ (Sodium Chloride) 100 mls @ 100 mls/hr IVPB DAILY [facility] PRN Reason: Protocol Last Admin: 07/16/17 10:46 Dose: 100 mls/hr Methylprednisolone (Solu-Medrol) 40 mg IVP Q8 [facility] Last Admin: 07/16/17 14:34 Dose: 40 mg Metoprolol Succinate (Toprol Xl) 25 mg PO DAILY [facility] Last Admin: 07/16/17 10:46 Dose: 25 mg Pantoprazole Sodium (Protonix Ec Tab) 40 mg PO DAILY [facility] Last Admin: 07/16/17 10:46 Dose: 40 mg Rosuvastatin Calcium (Crestor) 10 mg PO HS [facility] Last Admin: 07/15/17 21:37 Dose: 10 mg - Labs Labs: 07/14/17 08:17 07/14/17 08:17 PT 13.3 SECONDS (9.7-12.2) H 07/14/17 08:17 INR 1.2 07/14/17 08:17 APTT 35 SECONDS (21-34) H 07/14/17 08:17 - Constitutional Appears: Non-toxic, Chronically Ill - Head Exam Head Exam: NORMOCEPHALIC - Eye Exam Eye Exam: PERRL - ENT Exam ENT Exam: Mucous Membranes Dry - Neck Exam Neck Exam: absent: Lymphadenopathy - Respiratory Exam Respiratory Exam: Decreased Breath Sounds, Rhonchi - Cardiovascular Exam Cardiovascular Exam: REGULAR RHYTHM, +S1, +S2 - GI/Abdominal Exam GI & Abdominal Exam: Distended, Soft. absent: Tenderness - Rectal Exam Rectal Exam: Deferred - Exam Exam: NORMAL INSPECTION - Extremities Exam Extremities Exam: absent: Pedal Edema - Back Exam Back Exam: absent: CVA tenderness (L), CVA tenderness (R) Assessment and Plan (1) CHF exacerbation Status: Acute (2) COPD exacerbation Status: Acute (3) Dehydration Status: Acute - Assessment and Plan (Free Text) Assessment: cont rx as per Pulm await AFB smears
[2017-07-17] MEDS: Albuterol-Ipratrop 3 mg / 0.5 (3 ml) UD INH SCH ×4 (01:18→20:00)
[2017-07-17] MEDS: MethylPREDNISolone 40 mg Vial IVP SCH ×3 (05:24→22:24)
[2017-07-17] MEDS: Metoprolol Succinate 25 mg XL Tab PO SCH (10:43)
[2017-07-17] MEDS: Pantoprazole 40 mg EC Tab PO SCH (10:43)
[2017-07-17] MEDS: Azithromycin 500 MG in Sodium Chloride 0.9% 250 ML IVPB SCH (10:43)
[2017-07-17] MEDS: Enoxaparin 40 mg Syringe SC SCH (10:44)
--- NOTE | 2017-07-17 12:57 | CP.PCM.PN ---
Subjective - Date & Time of Evaluation Date of Evaluation: 07/17/17 Time of Evaluation: 12:55 - Subjective Subjective: ACUTE COPD/CHF. R/O PTB. SOB PRESENT. Objective - Vital Signs/Intake and Output Vital Signs (last 24 hours): Temp Pulse Resp BP Pulse Ox 98 F 62 20 133/76 100 07/17/17 07:00 07/17/17 08:00 07/17/17 07:00 07/17/17 07:00 07/17/17 07:00 - Medications Medications: Current Medications Albuterol (Ventolin Hfa 90 Mcg/Actuation (8 G)) 1 puff IH DAILY [facility] Last Admin: 07/16/17 10:38 Dose: Not Given Albuterol/Ipratropium (Duoneb 3 Mg/0.5 Mg (3 Ml) Ud) 3 ml INH RQ6 [facility] Last Admin: 07/17/17 07:25 Dose: 3 ml Enoxaparin Sodium (Lovenox) 40 mg SC DAILY [facility] Last Admin: 07/17/17 10:44 Dose: Not Given Azithromycin 500 mg/ Sodium (Chloride) 250 mls @ 250 mls/hr IVPB DAILY [facility] PRN Reason: Protocol Last Admin: 07/17/17 10:43 Dose: 250 mls/hr Ceftriaxone Sodium 1 gm/ (Sodium Chloride) 100 mls @ 100 mls/hr IVPB DAILY [facility] PRN Reason: Protocol Last Admin: 07/17/17 10:43 Dose: 100 mls/hr Methylprednisolone (Solu-Medrol) 40 mg IVP Q8 [facility] Last Admin: 07/17/17 05:24 Dose: 40 mg Metoprolol Succinate (Toprol Xl) 25 mg PO DAILY [facility] Last Admin: 07/17/17 10:43 Dose: 25 mg Pantoprazole Sodium (Protonix Ec Tab) 40 mg PO DAILY [facility] Last Admin: 07/17/17 10:43 Dose: 40 mg Rosuvastatin Calcium (Crestor) 10 mg PO HS [facility] Last Admin: 07/16/17 21:17 Dose: 10 mg - Labs Labs: 07/14/17 08:17 07/14/17 08:17 PT 13.3 SECONDS (9.7-12.2) H 07/14/17 08:17 INR 1.2 07/14/17 08:17 APTT 35 SECONDS (21-34) H 07/14/17 08:17 - Constitutional Appears: Chronically Ill - Head Exam Head Exam: ATRAUMATIC, NORMAL INSPECTION, NORMOCEPHALIC - Eye Exam Eye Exam: EOMI, Normal appearance, PERRL Pupil Exam: NORMAL ACCOMODATION, PERRL - ENT Exam ENT Exam: Mucous Membranes Moist, Normal Exam - Neck Exam Neck Exam: Full ROM, Normal Inspection. absent: Lymphadenopathy - Respiratory Exam Respiratory Exam: Decreased Breath Sounds, Rhonchi - Cardiovascular Exam Cardiovascular Exam: REGULAR RHYTHM, +S1, +S2. absent: Murmur - GI/Abdominal Exam GI & Abdominal Exam: Soft, Normal Bowel Sounds. absent: Tenderness - Extremities Exam Extremities Exam: Full ROM, Normal Capillary Refill, Normal Inspection. absent : Joint Swelling, Pedal Edema - Neurological Exam Neurological Exam: Alert, Awake, CN II-XII Intact, Normal Gait, Oriented x3 - Psychiatric Exam Psychiatric exam: Normal Affect, Normal Mood Assessment and Plan - Assessment and Plan (Free Text) Assessment: COPD Plan: W/U TO R/O PTB.
[2017-07-17] MEDS: Albuterol HFA 90 mcg/actuation (8 g) IH SCH (13:37)
--- NOTE | 2017-07-17 15:05 | CP.PCM.PN ---
Subjective - Date & Time of Evaluation Date of Evaluation: 07/17/17 Time of Evaluation: 11:30 - Subjective Subjective: patient seen and examined Patient states breathing is much better Still has some wheezing Afebrile On respiratory isolation Objective - Vital Signs/Intake and Output Vital Signs (last 24 hours): Temp Pulse Resp BP Pulse Ox 98 F 62 20 133/76 100 07/17/17 07:00 07/17/17 08:00 07/17/17 07:00 07/17/17 07:00 07/17/17 07:00 - Medications Medications: Current Medications Albuterol (Ventolin Hfa 90 Mcg/Actuation (8 G)) 1 puff IH DAILY [facility] Last Admin: 07/17/17 13:37 Dose: Not Given Albuterol/Ipratropium (Duoneb 3 Mg/0.5 Mg (3 Ml) Ud) 3 ml INH RQ6 [facility] Last Admin: 07/17/17 13:37 Dose: 3 ml Enoxaparin Sodium (Lovenox) 40 mg SC DAILY [facility] Last Admin: 07/17/17 10:44 Dose: Not Given Azithromycin 500 mg/ Sodium (Chloride) 250 mls @ 250 mls/hr IVPB DAILY [facility] PRN Reason: Protocol Last Admin: 07/17/17 10:43 Dose: 250 mls/hr Ceftriaxone Sodium 1 gm/ (Sodium Chloride) 100 mls @ 100 mls/hr IVPB DAILY [facility] PRN Reason: Protocol Last Admin: 07/17/17 10:43 Dose: 100 mls/hr Methylprednisolone (Solu-Medrol) 40 mg IVP Q8 [facility] Last Admin: 07/17/17 13:53 Dose: 40 mg Metoprolol Succinate (Toprol Xl) 25 mg PO DAILY [facility] Last Admin: 07/17/17 10:43 Dose: 25 mg Pantoprazole Sodium (Protonix Ec Tab) 40 mg PO DAILY [facility] Last Admin: 07/17/17 10:43 Dose: 40 mg Rosuvastatin Calcium (Crestor) 10 mg PO HS [facility] Last Admin: 07/16/17 21:17 Dose: 10 mg - Labs Labs: 07/14/17 08:17 07/14/17 08:17 PT 13.3 SECONDS (9.7-12.2) H 07/14/17 08:17 INR 1.2 07/14/17 08:17 APTT 35 SECONDS (21-34) H 07/14/17 08:17 - Head Exam Head Exam: ATRAUMATIC, NORMOCEPHALIC - Eye Exam Eye Exam: Normal appearance - ENT Exam ENT Exam: Mucous Membranes Moist - Neck Exam Neck Exam: Normal Inspection - Respiratory Exam Respiratory Exam: Rhonchi - Cardiovascular Exam Cardiovascular Exam: REGULAR RHYTHM - GI/Abdominal Exam GI & Abdominal Exam: Soft, Normal Bowel Sounds Assessment and Plan (1) COPD exacerbation Assessment & Plan: Taper steroids and continue nebulizer treatment Consider ENT evaluation Status: Acute
--- NOTE | 2017-07-17 17:48 | CP.PCM.PN ---
Subjective - Date & Time of Evaluation Date of Evaluation: 07/17/17 Time of Evaluation: 10:00 - Subjective Subjective: NO FEVER STILL NO AFB SMEARS RECORDED Objective - Vital Signs/Intake and Output Vital Signs (last 24 hours): Temp Pulse Resp BP Pulse Ox 98 F 60 20 133/76 100 07/17/17 07:00 07/17/17 12:00 07/17/17 07:00 07/17/17 07:00 07/17/17 07:00 - Medications Medications: Current Medications Albuterol (Ventolin Hfa 90 Mcg/Actuation (8 G)) 1 puff IH DAILY [facility] Last Admin: 07/17/17 13:37 Dose: Not Given Albuterol/Ipratropium (Duoneb 3 Mg/0.5 Mg (3 Ml) Ud) 3 ml INH RQ6 [facility] Last Admin: 07/17/17 13:37 Dose: 3 ml Enoxaparin Sodium (Lovenox) 40 mg SC DAILY [facility] Last Admin: 07/17/17 10:44 Dose: Not Given Azithromycin 500 mg/ Sodium (Chloride) 250 mls @ 250 mls/hr IVPB DAILY [facility] PRN Reason: Protocol Last Admin: 07/17/17 10:43 Dose: 250 mls/hr Ceftriaxone Sodium 1 gm/ (Sodium Chloride) 100 mls @ 100 mls/hr IVPB DAILY [facility] PRN Reason: Protocol Last Admin: 07/17/17 10:43 Dose: 100 mls/hr Methylprednisolone (Solu-Medrol) 40 mg IVP Q8 [facility] Last Admin: 07/17/17 13:53 Dose: 40 mg Metoprolol Succinate (Toprol Xl) 25 mg PO DAILY [facility] Last Admin: 07/17/17 10:43 Dose: 25 mg Pantoprazole Sodium (Protonix Ec Tab) 40 mg PO DAILY [facility] Last Admin: 07/17/17 10:43 Dose: 40 mg Rosuvastatin Calcium (Crestor) 10 mg PO HS [facility] Last Admin: 07/16/17 21:17 Dose: 10 mg - Labs Labs: 07/14/17 08:17 07/14/17 08:17 PT 13.3 SECONDS (9.7-12.2) H 07/14/17 08:17 INR 1.2 07/14/17 08:17 APTT 35 SECONDS (21-34) H 07/14/17 08:17 - Constitutional Appears: Non-toxic, Chronically Ill - Head Exam Head Exam: NORMOCEPHALIC - Eye Exam Eye Exam: PERRL - ENT Exam ENT Exam: Mucous Membranes Dry - Neck Exam Neck Exam: absent: Lymphadenopathy - Respiratory Exam Respiratory Exam: Decreased Breath Sounds - Cardiovascular Exam Cardiovascular Exam: REGULAR RHYTHM - GI/Abdominal Exam GI & Abdominal Exam: Distended, Soft - Rectal Exam Rectal Exam: Deferred - Exam Exam: NORMAL INSPECTION Assessment and Plan (1) CHF exacerbation Status: Acute (2) COPD exacerbation Status: Acute (3) Dehydration Status: Acute - Assessment and Plan (Free Text) Assessment: CONT IV RX CHECK SPUTUM
[2017-07-18] MEDS: Albuterol-Ipratrop 3 mg / 0.5 (3 ml) UD INH SCH ×4 (03:43→20:34)
[2017-07-18] MEDS: MethylPREDNISolone 40 mg Vial IVP SCH ×3 (05:42→21:22)
[2017-07-18 06:56] LABS: BASO % 0.5 % (0.0-2.0); HEMOGLOBIN 10.6 g/dL (12.0-18.0); LYMPH # 1.4 K/uL (1.0-4.3); LYMPH % 28.7 % (20.0-40.0); MEAN CELL VOLUME 89.6 fL (80.0-94.0); MEAN CORPUSCULAR HEMOGLOBIN 29.8 pg (27.0-31.0); MEAN CORPUSCULAR HGB CONC 33.3 g/dL (33.0-37.0); MEAN PLATELET VOLUME 9.7 fL (7.2-11.7); MONO # 0.2 K/uL (0.0-0.8); MONO % 5.1 % (0.0-10.0); NEUT # 3.2 K/uL (1.8-7.0); NEUT % 65.7 % (50.0-75.0); NRBC % 0.4 % (0.0-2.0); RBC 3.56 Mil/uL (4.40-5.90); RED CELL DISTRIBUTION WIDTH 16.4 % (11.5-14.5); WHITE BLOOD COUNT 4.9 K/uL (4.8-10.8)
[2017-07-18 07:11] LABS: ALB/GLOB RATIO 0.9 (1.0-2.1); ALBUMIN 3.4 g/dL (3.5-5.0); ALT/SGPT 24 U/L (21-72); AST/SGOT 21 U/L (17-59); BLOOD UREA NITROGEN 34 mg/dL (9-20); CALCIUM 8.9 mg/dl (8.6-10.4); GFR AFRICAN-AMERICAN > 60; GFR NON-AFRICAN AMERICAN > 60
[2017-07-18] MEDS: Metoprolol Succinate 25 mg XL Tab PO SCH (09:42)
[2017-07-18] MEDS: Pantoprazole 40 mg EC Tab PO SCH (09:42)
[2017-07-18] MEDS: Enoxaparin 40 mg Syringe SC SCH (09:42)
--- NOTE | 2017-07-18 10:26 | CP.PCM.PN ---
Subjective - Date & Time of Evaluation Date of Evaluation: 07/18/17 Time of Evaluation: 10:00 - Subjective Subjective: patient seen and examined Lying comfortably in no acute distress Awaiting for AFB Objective - Vital Signs/Intake and Output Vital Signs (last 24 hours): Temp Pulse Resp BP Pulse Ox 97.2 F L 53 L 18 169/80 H 98 07/18/17 07:00 07/18/17 07:00 07/18/17 07:00 07/18/17 07:00 07/18/17 07:00 Intake and Output: 07/18/17 07/18/17 06:59 18:59 Intake Total 0 Output Total 500 Balance -500 - Medications Medications: Current Medications Albuterol (Ventolin Hfa 90 Mcg/Actuation (8 G)) 1 puff IH DAILY [facility] Last Admin: 07/17/17 13:37 Dose: Not Given Albuterol/Ipratropium (Duoneb 3 Mg/0.5 Mg (3 Ml) Ud) 3 ml INH RQ6 [facility] Last Admin: 07/18/17 08:45 Dose: 3 ml Enoxaparin Sodium (Lovenox) 40 mg SC DAILY [facility] Last Admin: 07/18/17 09:42 Dose: 40 mg Azithromycin 500 mg/ Sodium (Chloride) 250 mls @ 250 mls/hr IVPB DAILY [facility] PRN Reason: Protocol Last Admin: 07/17/17 10:43 Dose: 250 mls/hr Ceftriaxone Sodium 1 gm/ (Sodium Chloride) 100 mls @ 100 mls/hr IVPB DAILY [facility] PRN Reason: Protocol Last Admin: 07/18/17 09:43 Dose: 100 mls/hr Methylprednisolone (Solu-Medrol) 40 mg IVP Q8 [facility] Last Admin: 07/18/17 05:42 Dose: 40 mg Metoprolol Succinate (Toprol Xl) 25 mg PO DAILY [facility] Last Admin: 07/18/17 09:42 Dose: 25 mg Pantoprazole Sodium (Protonix Ec Tab) 40 mg PO DAILY [facility] Last Admin: 07/18/17 09:42 Dose: 40 mg Rosuvastatin Calcium (Crestor) 10 mg PO HS [facility] Last Admin: 07/17/17 22:24 Dose: 10 mg - Labs Labs: 07/18/17 06:45 07/18/17 06:45 PT 13.3 SECONDS (9.7-12.2) H 07/14/17 08:17 INR 1.2 07/14/17 08:17 APTT 35 SECONDS (21-34) H 07/14/17 08:17 - Head Exam Head Exam: ATRAUMATIC, NORMOCEPHALIC - Eye Exam Eye Exam: Normal appearance - ENT Exam ENT Exam: Mucous Membranes Moist - Neck Exam Neck Exam: Normal Inspection - Respiratory Exam Respiratory Exam: Clear to Ausculation Bilateral - Cardiovascular Exam Cardiovascular Exam: REGULAR RHYTHM - GI/Abdominal Exam GI & Abdominal Exam: Soft, Normal Bowel Sounds Assessment and Plan (1) COPD exacerbation Assessment & Plan: Continue nebulizer treatment Awaiting for sputum AFB Unlikely TB Status: Acute
[2017-07-18] MEDS: Azithromycin 500 MG in Sodium Chloride 0.9% 250 ML IVPB SCH (10:35)
--- NOTE | 2017-07-18 10:41 | CP.PCM.PN ---
Subjective - Date & Time of Evaluation Date of Evaluation: 07/18/17 Time of Evaluation: 10:39 - Subjective Subjective: NO SOB. AFEBRILE. FEELS BETTER. Objective - Vital Signs/Intake and Output Vital Signs (last 24 hours): Temp Pulse Resp BP Pulse Ox 97.2 F L 53 L 18 169/80 H 98 07/18/17 07:00 07/18/17 07:00 07/18/17 07:00 07/18/17 07:00 07/18/17 07:00 Intake and Output: 07/18/17 07/18/17 06:59 18:59 Intake Total 0 Output Total 500 Balance -500 - Medications Medications: Current Medications Albuterol (Ventolin Hfa 90 Mcg/Actuation (8 G)) 1 puff IH DAILY [facility] Last Admin: 07/17/17 13:37 Dose: Not Given Albuterol/Ipratropium (Duoneb 3 Mg/0.5 Mg (3 Ml) Ud) 3 ml INH RQ6 [facility] Last Admin: 07/18/17 08:45 Dose: 3 ml Enoxaparin Sodium (Lovenox) 40 mg SC DAILY [facility] Last Admin: 07/18/17 09:42 Dose: 40 mg Azithromycin 500 mg/ Sodium (Chloride) 250 mls @ 250 mls/hr IVPB DAILY [facility] PRN Reason: Protocol Last Admin: 07/18/17 10:35 Dose: 250 mls/hr Ceftriaxone Sodium 1 gm/ (Sodium Chloride) 100 mls @ 100 mls/hr IVPB DAILY [facility] PRN Reason: Protocol Last Admin: 07/18/17 09:43 Dose: 100 mls/hr Methylprednisolone (Solu-Medrol) 40 mg IVP Q8 [facility] Last Admin: 07/18/17 05:42 Dose: 40 mg Metoprolol Succinate (Toprol Xl) 25 mg PO DAILY [facility] Last Admin: 07/18/17 09:42 Dose: 25 mg Pantoprazole Sodium (Protonix Ec Tab) 40 mg PO DAILY [facility] Last Admin: 07/18/17 09:42 Dose: 40 mg Rosuvastatin Calcium (Crestor) 10 mg PO HS [facility] Last Admin: 07/17/17 22:24 Dose: 10 mg - Labs Labs: 07/18/17 06:45 07/18/17 06:45 PT 13.3 SECONDS (9.7-12.2) H 07/14/17 08:17 INR 1.2 07/14/17 08:17 APTT 35 SECONDS (21-34) H 07/14/17 08:17 - Constitutional Appears: No Acute Distress, Chronically Ill - Eye Exam Eye Exam: EOMI, Normal appearance, PERRL Pupil Exam: NORMAL ACCOMODATION, PERRL - ENT Exam ENT Exam: Mucous Membranes Moist, Normal Exam - Neck Exam Neck Exam: Full ROM, Normal Inspection. absent: Lymphadenopathy - Respiratory Exam Respiratory Exam: Clear to Ausculation Bilateral, NORMAL BREATHING PATTERN - Cardiovascular Exam Cardiovascular Exam: REGULAR RHYTHM, +S1, +S2. absent: Murmur - GI/Abdominal Exam GI & Abdominal Exam: Soft, Normal Bowel Sounds. absent: Tenderness - Extremities Exam Extremities Exam: Full ROM, Normal Capillary Refill, Normal Inspection. absent : Joint Swelling, Pedal Edema - Back Exam Back Exam: NORMAL INSPECTION - Neurological Exam Neurological Exam: Alert, Awake, CN II-XII Intact, Normal Gait, Oriented x3 Assessment and Plan - Assessment and Plan (Free Text) Assessment: COPD/CHF. Plan: OK FOR DISCHARGE IF [employer] IS NEG. CT ALL MEDS. NO ANTIBIOTICS. PO PREDNISONE.
[2017-07-18] MEDS: Albuterol HFA 90 mcg/actuation (8 g) IH SCH (14:10)
--- NOTE | 2017-07-18 14:42 | CP.PCM.PN ---
Subjective - Date & Time of Evaluation Date of Evaluation: 07/18/17 Time of Evaluation: 08:00 - Subjective Subjective: improving less sob less cough NAD afb x1 neg Objective - Vital Signs/Intake and Output Vital Signs (last 24 hours): Temp Pulse Resp BP Pulse Ox 97.2 F L 53 L 18 169/80 H 98 07/18/17 07:00 07/18/17 07:00 07/18/17 07:00 07/18/17 07:00 07/18/17 07:00 Intake and Output: 07/18/17 07/18/17 06:59 18:59 Intake Total 0 540 Output Total 500 Balance -500 540 - Medications Medications: Current Medications Albuterol (Ventolin Hfa 90 Mcg/Actuation (8 G)) 1 puff IH DAILY [facility] Last Admin: 07/18/17 14:10 Dose: 1 puff Albuterol/Ipratropium (Duoneb 3 Mg/0.5 Mg (3 Ml) Ud) 3 ml INH RQ6 [facility] Last Admin: 07/18/17 13:31 Dose: 3 ml Enoxaparin Sodium (Lovenox) 40 mg SC DAILY [facility] Last Admin: 07/18/17 09:42 Dose: 40 mg Azithromycin 500 mg/ Sodium (Chloride) 250 mls @ 250 mls/hr IVPB DAILY [facility] PRN Reason: Protocol Last Admin: 07/18/17 10:35 Dose: 250 mls/hr Ceftriaxone Sodium 1 gm/ (Sodium Chloride) 100 mls @ 100 mls/hr IVPB DAILY [facility] PRN Reason: Protocol Last Admin: 07/18/17 09:43 Dose: 100 mls/hr Methylprednisolone (Solu-Medrol) 40 mg IVP Q8 [facility] Last Admin: 07/18/17 13:16 Dose: 40 mg Metoprolol Succinate (Toprol Xl) 25 mg PO DAILY [facility] Last Admin: 07/18/17 09:42 Dose: 25 mg Pantoprazole Sodium (Protonix Ec Tab) 40 mg PO DAILY [facility] Last Admin: 07/18/17 09:42 Dose: 40 mg Rosuvastatin Calcium (Crestor) 10 mg PO HS [facility] Last Admin: 07/17/17 22:24 Dose: 10 mg - Labs Labs: 07/18/17 06:45 07/18/17 06:45 PT 13.3 SECONDS (9.7-12.2) H 07/14/17 08:17 INR 1.2 07/14/17 08:17 APTT 35 SECONDS (21-34) H 07/14/17 08:17 - Constitutional Appears: Non-toxic, Chronically Ill - Head Exam Head Exam: NORMOCEPHALIC - Eye Exam Eye Exam: PERRL - ENT Exam ENT Exam: Mucous Membranes Dry - Neck Exam Neck Exam: absent: Lymphadenopathy - Respiratory Exam Respiratory Exam: Decreased Breath Sounds - Cardiovascular Exam Cardiovascular Exam: REGULAR RHYTHM - GI/Abdominal Exam GI & Abdominal Exam: Distended - Rectal Exam Rectal Exam: Deferred - Exam Exam: NORMAL INSPECTION - Extremities Exam Extremities Exam: absent: Pedal Edema - Back Exam Back Exam: absent: CVA tenderness (L), CVA tenderness (R) - Neurological Exam Neurological Exam: Alert, Awake, Oriented x3 Assessment and Plan (1) CHF exacerbation Status: Acute (2) COPD exacerbation Status: Acute (3) Dehydration Status: Acute - Assessment and Plan (Free Text) Assessment: await AFB smears and TB quantiferon
[2017-07-18 17:42] LABS: TB ANTIGEN MINUS NIL 0.01 IU/mL
[2017-07-19] MEDS: Albuterol-Ipratrop 3 mg / 0.5 (3 ml) UD INH SCH ×3 (01:14→13:09)
[2017-07-19] MEDS: MethylPREDNISolone 40 mg Vial IVP SCH ×3 (06:19→21:32)
[2017-07-19] MEDS: Metoprolol Succinate 25 mg XL Tab PO SCH (09:44)
[2017-07-19] MEDS: Pantoprazole 40 mg EC Tab PO SCH (09:44)
[2017-07-19] MEDS: Enoxaparin 40 mg Syringe SC SCH (09:51)
[2017-07-19] MEDS: Azithromycin 500 MG in Sodium Chloride 0.9% 250 ML IVPB SCH (11:07)
[2017-07-19] MEDS: Albuterol HFA 90 mcg/actuation (8 g) IH SCH (13:07)
--- NOTE | 2017-07-19 13:08 | CP.PCM.PN ---
Subjective - Date & Time of Evaluation Date of Evaluation: 07/19/17 Time of Evaluation: 10:20 - Subjective Subjective: FEELS BETTER. MILD SOB. Objective - Vital Signs/Intake and Output Vital Signs (last 24 hours): Temp Pulse Resp BP Pulse Ox 98.1 F 50 L 20 148/76 97 07/19/17 07:00 07/19/17 08:20 07/19/17 07:00 07/19/17 07:00 07/19/17 07:00 Intake and Output: 07/19/17 07/19/17 06:59 18:59 Intake Total 0 Output Total 400 Balance -400 - Medications Medications: Current Medications Albuterol (Ventolin Hfa 90 Mcg/Actuation (8 G)) 1 puff IH DAILY [facility] Last Admin: 07/18/17 14:10 Dose: 1 puff Albuterol/Ipratropium (Duoneb 3 Mg/0.5 Mg (3 Ml) Ud) 3 ml INH RQ6 [facility] Last Admin: 07/19/17 07:55 Dose: 3 ml Enoxaparin Sodium (Lovenox) 40 mg SC DAILY [facility] Last Admin: 07/19/17 09:51 Dose: 40 mg Azithromycin 500 mg/ Sodium (Chloride) 250 mls @ 250 mls/hr IVPB DAILY [facility] PRN Reason: Protocol Last Admin: 07/19/17 11:07 Dose: 250 mls/hr Ceftriaxone Sodium 1 gm/ (Sodium Chloride) 100 mls @ 100 mls/hr IVPB DAILY [facility] PRN Reason: Protocol Last Admin: 07/19/17 09:43 Dose: 100 mls/hr Methylprednisolone (Solu-Medrol) 40 mg IVP Q8 [facility] Last Admin: 07/19/17 06:19 Dose: 40 mg Metoprolol Succinate (Toprol Xl) 25 mg PO DAILY [facility] Last Admin: 07/19/17 09:44 Dose: 25 mg Pantoprazole Sodium (Protonix Ec Tab) 40 mg PO DAILY [facility] Last Admin: 07/19/17 09:44 Dose: 40 mg Rosuvastatin Calcium (Crestor) 10 mg PO HS [facility] Last Admin: 07/18/17 21:23 Dose: 10 mg - Labs Labs: 07/18/17 06:45 07/18/17 06:45 PT 13.3 SECONDS (9.7-12.2) H 07/14/17 08:17 INR 1.2 07/14/17 08:17 APTT 35 SECONDS (21-34) H 07/14/17 08:17 - Constitutional Appears: No Acute Distress, Chronically Ill - Eye Exam Eye Exam: EOMI, Normal appearance, PERRL Pupil Exam: NORMAL ACCOMODATION, PERRL - ENT Exam ENT Exam: Mucous Membranes Moist, Normal Exam - Respiratory Exam Respiratory Exam: Clear to Ausculation Bilateral, NORMAL BREATHING PATTERN - Cardiovascular Exam Cardiovascular Exam: REGULAR RHYTHM, +S1, +S2. absent: Murmur - GI/Abdominal Exam GI & Abdominal Exam: Soft, Normal Bowel Sounds. absent: Tenderness - Extremities Exam Extremities Exam: Full ROM, Normal Capillary Refill, Normal Inspection. absent : Joint Swelling, Pedal Edema - Back Exam Back Exam: NORMAL INSPECTION - Neurological Exam Neurological Exam: Alert, Awake, CN II-XII Intact, Normal Gait, Oriented x3 - Psychiatric Exam Psychiatric exam: Normal Affect, Normal Mood Assessment and Plan - Assessment and Plan (Free Text) Assessment: COPD/CHF. Plan: AWAITING [place] FOR AFB.
[2017-07-20] MEDS: MethylPREDNISolone 40 mg Vial IVP SCH (05:33)
[2017-07-20 08:52] VITALS: BP 160/72; RESP 18; TEMP 97.9; O2SAT 100
[2017-07-20 08:58] VITALS: PULSE 49
[2017-07-20] MEDS: Metoprolol Succinate 25 mg XL Tab PO SCH (09:27)
[2017-07-20] MEDS: Enoxaparin 40 mg Syringe SC SCH (09:27)
[2017-07-20] MEDS: Pantoprazole 40 mg EC Tab PO SCH (09:27)
[2017-07-20] MEDS: Azithromycin 500 MG in Sodium Chloride 0.9% 250 ML IVPB SCH (10:55)
--- NOTE | 2017-07-20 11:36 | CP.PCM.PN ---
Subjective - Date & Time of Evaluation Date of Evaluation: 07/20/17 Time of Evaluation: 11:36 - Subjective Subjective: PT SEEN BY DR. Obdulia LOPEZ AND CLEARED FOR D/C HOME TODAY. LABS REVIEWED WITH DR. OLIVER, AND PER HIM, PT OK TO BE D/C HOME WITH PO DIFLUCAN AND AUGMENTIN FOR 7 DAYS. DISCUSSED D/C PLAN, F/U, AND NEW RX WITH PT AND FAMILY AT BEDSIDE. PT TO F/U WITH DR. GARLAND AND DR. LOPEZ IN THE OFFICE WITHIN 1 WEEK. RX SENT TO PT' S PHARMACY. NO FURTHER ORDERS. -FOLLOW UP WITH DR. Thomas LOPEZ IN THE OFFICE WITHIN 1 WEEK---CALL THE OFFICE TO MAKE YOUR APPOINTMENT. -FOLLOW UP WITH DR. GARLAND IN THE OFFICE WITHIN 1-2 WEEKS---CALL THE OFFICE TO MAKE YOUR APPOINTMENT. -CONTINUE TAKING YOUR HOME MEDICATIONS USUAL. -NEW PRESCRIPTIONS INCLUDE: 1) DIFLUCAN 100 MG (TAKE 1 TABLET) BY MOUTH ONCE A DAY FOR 7 DAYS. 2) AUGMENTIN 875 MG (TAKE 1 TABLET) BY MOUTH TWICE A DAY (MORNING AND EVENING) FOR 7 DAYS. 3) PREDNISONE 20 MG (STEROID FOR YOUR BREATHING; TAKE 1 TABLET) BY MOUTH ONCE A DAY FOR 5 DAYS. -FOR FURTHER QUESTIONS, CONTACT DR. Thomas LOPEZ. Objective - Vital Signs/Intake and Output Vital Signs (last 24 hours): Temp Pulse Resp BP Pulse Ox 97.9 F 49 L 18 160/72 H 100 07/20/17 07:45 07/20/17 08:00 07/20/17 07:45 07/20/17 07:45 07/20/17 07:45 Intake and Output: 07/20/17 07/20/17 06:59 18:59 Intake Total 0 Output Total 400 Balance -400 - Medications Medications: Current Medications Albuterol (Ventolin Hfa 90 Mcg/Actuation (8 G)) 1 puff IH DAILY [facility] Last Admin: 07/19/17 13:07 Dose: Not Given Enoxaparin Sodium (Lovenox) 40 mg SC DAILY [facility] Last Admin: 07/20/17 09:27 Dose: 40 mg Methylprednisolone (Solu-Medrol) 40 mg IVP Q8 [facility] Last Admin: 07/20/17 05:33 Dose: 40 mg Metoprolol Succinate (Toprol Xl) 25 mg PO DAILY [facility] Last Admin: 07/20/17 09:27 Dose: 25 mg Pantoprazole Sodium (Protonix Ec Tab) 40 mg PO DAILY [facility] Last Admin: 07/20/17 09:27 Dose: 40 mg Rosuvastatin Calcium (Crestor) 10 mg PO [facility] Last Admin: 07/19/17 21:33 Dose: 10 mg - Labs Labs: 07/18/17 06:45 07/18/17 06:45 PT 13.3 SECONDS (9.7-12.2) H 07/14/17 08:17 INR 1.2 07/14/17 08:17 APTT 35 SECONDS (21-34) H 07/14/17 08:17
--- NOTE | 2017-07-20 12:34 | PCM.HF ---
Heart Failure Core Measure - Heart Failure Ejection Fraction: 40 % or Greater NIKKI Inhibitor Prescribed: No Contraindication/Reason for not providing: EF > 40 Beta-Luis Prescribed: Metoprolol Succinate Angiotensin II Receptor Luis Prescribed: No Contraindication/Reason for not providing: EF > 40 AnticoagulationTherapy for Atrial Fibrillation/Atrialflutter: No Contraindication/Reason for not providing: NO AFIB Aldosterone Antagonist Prescribed: No Contraindication/Reason for not providing: EF > 40 Hydralazine Nitrate Prescribed: No Contraindication/Reason for not providing: EF > 40 Implantable Cardioverter Defibrillator Therapy: No Contraindication/Reason for not providing: EF > 40 Cardiac Resynchronization Therapy Prescribed: No Contraindication/Reason for not providing: EF > 40 - Follow up Will be discharged to: Home Follow Up Date (must be within 7 days from discharge): 07/24/17 Follow Up Time: 09:00
--- NOTE | 2017-07-20 12:50 | CP.PCM.PN ---
Subjective - Date & Time of Evaluation Date of Evaluation: 07/20/17 Time of Evaluation: 12:48 - Subjective Subjective: FEELS BETTER. LESS SOB. AF[employer] NEG. Objective - Vital Signs/Intake and Output Vital Signs (last 24 hours): Temp Pulse Resp BP Pulse Ox 97.9 F 49 L 18 160/72 H 100 07/20/17 07:45 07/20/17 08:00 07/20/17 07:45 07/20/17 07:45 07/20/17 07:45 Intake and Output: 07/20/17 07/20/17 06:59 18:59 Intake Total 0 Output Total 400 Balance -400 - Medications Medications: Current Medications Albuterol (Ventolin Hfa 90 Mcg/Actuation (8 G)) 1 puff IH DAILY [facility] Last Admin: 07/19/17 13:07 Dose: Not Given Enoxaparin Sodium (Lovenox) 40 mg SC DAILY [facility] Last Admin: 07/20/17 09:27 Dose: 40 mg Methylprednisolone (Solu-Medrol) 40 mg IVP Q8 [facility] Last Admin: 07/20/17 05:33 Dose: 40 mg Metoprolol Succinate (Toprol Xl) 25 mg PO DAILY [facility] Last Admin: 07/20/17 09:27 Dose: 25 mg Pantoprazole Sodium (Protonix Ec Tab) 40 mg PO DAILY [facility] Last Admin: 07/20/17 09:27 Dose: 40 mg Rosuvastatin Calcium (Crestor) 10 mg PO HS [facility] Last Admin: 07/19/17 21:33 Dose: 10 mg - Labs Labs: 07/18/17 06:45 07/18/17 06:45 PT 13.3 SECONDS (9.7-12.2) H 07/14/17 08:17 INR 1.2 07/14/17 08:17 APTT 35 SECONDS (21-34) H 07/14/17 08:17 - Constitutional Appears: No Acute Distress, Chronically Ill - Eye Exam Eye Exam: EOMI, Normal appearance, PERRL Pupil Exam: NORMAL ACCOMODATION, PERRL - ENT Exam ENT Exam: Mucous Membranes Moist, Normal Exam - Neck Exam Neck Exam: Full ROM, Normal Inspection. absent: Lymphadenopathy - Respiratory Exam Respiratory Exam: Clear to Ausculation Bilateral, NORMAL BREATHING PATTERN - Cardiovascular Exam Cardiovascular Exam: REGULAR RHYTHM, +S1, +S2. absent: Murmur - GI/Abdominal Exam GI & Abdominal Exam: Soft, Normal Bowel Sounds. absent: Tenderness - Extremities Exam Extremities Exam: Full ROM, Normal Capillary Refill, Normal Inspection. absent : Joint Swelling, Pedal Edema - Neurological Exam Neurological Exam: Alert, Awake, CN II-XII Intact, Normal Gait, Oriented x3 - Psychiatric Exam Psychiatric exam: Normal Affect, Normal Mood Assessment and Plan - Assessment and Plan (Free Text) Assessment: COPD/CHF. Plan: FOR D/C HOME. CT ALL MEDS.
== END 2017-07-20 13:03 | disposition home or self-care (01) | DRG 193 ==
LOC: C.ER 07:42 → C.9E 10:00 → C.6T 12:24
PROVIDERS: ADMIT Internal Medicine; ATTEND Internal Medicine
DX: J18.9 Pneumonia, unspecified organism (principal); I50.33 Acute on chronic diastolic (congestive) heart failure; J44.0 Chronic obstructive pulmonary disease with (acute) lower respiratory infection; J44.1 Chronic obstructive pulmonary disease with (acute) exacerbation; I48.91 Unspecified atrial fibrillation; I70.0 Atherosclerosis of aorta; E86.0 Dehydration; I77.819 Aortic ectasia, unspecified site; Z87.891 Personal history of nicotine dependence